=== PATIENT | male | born 1975 | race Caucasian/White ===

== ENCOUNTER 2016-04-10 15:23 | Emergency (ER) | payer OTHER ==
--- NOTE | 2016-04-10 15:33 | UCPHY ---
H & P Patient Type: Established HPI/ROS: HPI CHIEF COMPLAINT: Abdominal pain, nausea. HISTORY OF PRESENT ILLNESS: This patient very pleasant 40-year-old male, presents to the urgent care with left-sided abdominal pain times 3 days. Patient tells me it is a dull ache 8/10 left upper and left lower abdomen. He denies having diarrhea denies having bloody stools denies vomiting. Denies fever. Denies chest pain or shortness of breath. Describes the pain is dull achy 8 in 10 constant left side of his abdomen. Past Medical History: IgG 4 Past Surgical History: Denies any surgical history Social History: Denies use of drugs alcohol tobacco Family History: Noncontributory ROS REVIEW OF SYSTEMS: A comprehensive 10 point review of systems is otherwise negative aside from elements mentioned in the history of present illness. Exam Constitutional triage nursing summary reviewed, vital signs reviewed, awake/ alert. Eyes normal conjunctivae and sclera, EOMI, PERRLA. HENT normal inspection, atraumatic, moist mucus membranes, no epistaxis, neck supple/ no meningismus, no raccoon eyes. Respiratory clear to auscultation bilaterally, normal breath sounds, no respiratory distress, no wheezing. Cardiovascular rate normal, regular rhythm, no murmur, no edema, distal pulses normal. Gastrointestinal soft, mild tenderness palpation left upper quadrant, left lower quadrant , no rebound, no guarding, normal bowel sounds, no distension, no pulsatile mass. Genitourinary no CVA tenderness. Musculoskeletal no midline vertebral tenderness, full range of motion, no calf swelling, no tenderness of extremities, no meningismus, good pulses, neurovascularly intact. Skin pink, warm, & dry, no rash, skin atraumatic. Neurologic awake, alert and oriented x 3, AAOx3, moves all 4 extremities equally, motor intact, sensory intact, CN II-XII intact, normal cerebellar, normal vision, normal speech. Psychiatric normal mood/affect. Heme/Lymph/Immune no lymphadenopathy. Differential diagnosis includes but is not limited to and in no particular order : Bowel obstruction, appendicitis, gallbladder disease, diverticulitis, colitis , enteritis, perforated viscus, gastritis, GERD, esophagitis, urinary tract infection, pyelonephritis, kidney stones Medical Decision Making: This patient had an IV established will obtain blood work, patient had a CT scan abdomen pelvis with IV contrast to help delineate acute left-sided abdominal pain. It is possible this is colitis/diverticulitis. He will be gently hydrated with IV fluids normal saline, IV 0.5 mg Dilaudid, and IV Zofran 4 mg for nausea. Re-evaluation: CT scan of the abdomen pelvis without IV contrast The results of the study are pancreas appears slightly full, otherwise no evidence of acute colitis, diverticulitis. The study was read by Dr. Jackson. I viewed the images myself on the PACS system. 1719: re-evaluation this time this patient is resting comfortably. Still some mild tenderness palpation epigastric and left upper quadrant. CT scan shows fullness of the pancreas however lipase normal. 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 He is feeling much better does tell me that he still has mild pain would like more pain medicine. 1800: Re-examination at this time this patient is feeling much better his abdomen remained soft nontender he p.o. challenge well and vomiting. Does understand to follow up with his primary care doctor about his elevated blood sugar when I asked him if he had diabetes says 5 years ago however has not had to take diabetic medication was noted his blood sugar was elevated. He understands he needs to follow up with his primary care doctor about his elevated blood sugar. He also understands to return to the emergency room if develops any worsening abdominal pain fever vomiting. I will prescribe drive him a very low dose of Ararat. On CT scan his pancreas looked slightly large, this may be due to autoimmune pancreatitis. His lipase was noted to be normal but he is having pain there. He understands to eat no fatty greasy foods. Clear liquid diet over the next 12 hours Ararat for pain return if any worsening symptoms Source: Patient - Personal History Tetanus Vaccine Date: >10yrs - Medical/Surgical History Hx Asthma: No Hx Chronic Respiratory Disease: No Hx Diabetes: No Hx Cardiac Disease: No Hx Renal Disease: No Hx Cirrhosis: No Hx Alcoholism: No Hx HIV/AIDS: No Hx Splenectomy or Spleen Trauma: No Other PMH: R arm lymph node biopsy 09/2013 neg - Family History Significant Family History: No pertinent family hx - Social History Smoking Status: Never smoked Constitutional: Initial Vital Signs Temperature (C) 36.6 C 04/10/16 15:32 Heart Rate 72 04/10/16 15:32 Respiratory Rate 18 04/10/16 15:32 Blood Pressure 128/78 H 04/10/16 15:32 O2 Sat (%) 96 04/10/16 15:32 O2 Delivery Mode Room Air Allergies/Adverse Reactions: iv contrast Allergy (Uncoded 07/05/14 23:43) Home Medications: Medication Instructions Recorded Hydrocodone/APAP 325 [Ararat 1 - 2 tab PO Q4H PRN #10 tab 04/10/16 5/325] Imuran 50 mg (*) 04/10/16 Medical Decision Making - Data Points Laboratory Results: Laboratory Results 04/10/16 16:15 04/10/16 16:15 04/10/16 16:15 WBC 5.22 10^3/uL (3.80-9.50) RBC 5.01 10^6/uL (4.40-6.38) Hgb 15.2 g/dL (13.7-17.5) Hct 43.0 % (40.0-51.0) MCV 85.8 fL (81.5-99.8) MCH 30.3 pg (27.9-34.1) MCHC 35.3 g/dL (32.4-36.7) RDW 12.1 % (11.5-15.2) Plt Count 220 10^3/uL (150-400) MPV 10.9 fL (8.7-11.7) Neut % (Auto) 57.1 % (39.3-74.2) Lymph % (Auto) 28.5 % (15.0-45.0) [place] % (Auto) 11.5 % (4.5-13.0) Eos % (Auto) 1.9 % (0.6-7.6) Baso % (Auto) 0.4 % (0.3-1.7) Nucleat RBC Rel Count 0.0 % (0.0-0.2) Absolute Neuts (auto) 2.98 10^3/uL (1.70-6.50) Absolute Lymphs (auto) 1.49 10^3/uL (1.00-3.00) Absolute Monos (auto) 0.60 10^3/uL (0.30-0.80) Absolute Eos (auto) 0.10 10^3/uL (0.03-0.40) Absolute Basos (auto) 0.02 10^3/uL (0.02-0.10) Absolute Nucleated RBC 0.00 10^3/uL (0-0.01) Immature Gran % 0.6 % (0.0-1.1) Immature Gran # 0.03 10^3/uL (0.00-0.10) PT 12.3 SEC (12.0-15.0) INR 0.93 (0.83-1.16) APTT 22.4 L SEC (23.0-38.0) VBG Lactic Acid 1.0 mmol/L (0.7-2.1) Sodium 140 mEq/L (134-144) Potassium 3.8 mEq/L (3.5-5.2) Chloride 105 mEq/L (97-110) Carbon Dioxide 25 mEq/l (22-31) Anion Gap 10 mEq/L (8-16) BUN 13 mg/dL (7-23) Creatinine 0.9 mg/dL (0.7-1.3) Estimated GFR > 60 Glucose 280 H mg/dL (70-100) Calcium 8.8 mg/dL (8.5-10.4) Total Bilirubin 0.7 mg/dL (0.1-1.4) Conjugated Bilirubin 0.3 mg/dL (0.0-0.5) Unconjugated Bilirubin 0.4 mg/dL (0.0-1.1) AST 28 IU/L (17-59) ALT 45 IU/L (21-72) Alkaline Phosphatase 135 H IU/L (38-126) Total Protein 6.6 g/dL (6.3-8.2) Albumin 3.5 g/dL (3.5-5.0) Lipase 271.0 IU/L (23-300) Medications Given: Discontinued Medications Hydromorphone HCl (Dilaudid) 0.5 mg IVP EDNOW ONE Stop: 04/10/16 15:38 Last Admin: 04/10/16 16:20 Dose: 0.5 mg Hydromorphone HCl (Dilaudid) 1 mg IVP EDNOW ONE Stop: 04/10/16 17:20 Last Admin: 04/10/16 17:37 Dose: 1 mg Sodium Chloride (Ns) 1,000 mls @ 0 mls/hr IV ONCE ONE PRN Reason: Wide Open Stop: 04/10/16 15:38 Last Admin: 04/10/16 16:21 Dose: 1,000 mls Sodium Chloride (Ns) 1,000 mls @ 0 mls/hr IV ONCE ONE PRN Reason: Wide Open Stop: 04/10/16 17:20 Last Admin: 04/10/16 17:37 Dose: 1,000 mls Ondansetron HCl (Zofran) 4 mg IVP EDNOW ONE Stop: 04/10/16 15:38 Last Admin: 04/10/16 16:21 Dose: 4 mg Departure - Departure Disposition: Home, Routine, Self-Care Clinical Impression: Hyperglycemia Abdominal pain Qualifiers: Qualifier Code: (R10.84) Generalized abdominal pain Condition: Good Instructions: Diabetic Hyperglycemia (ED), Acute Abdominal Pain (ED) Additional Instructions: 1. Please return to the emergency room if he develops any worsening symptoms questions or concerns. 2. your blood sugar was noted to be somewhat high here in the Urgent Care please follow up with her primary care doctor about this. Please call their for an appointment this week. Referrals: AMANDA THURSTON,Donald [Primary Care Provider] - As per Instructions Prescriptions: Hydrocodone/APAP 5/325 [Ararat 5/325] 1 - 2 tab PO Q4H PRN #10 tab PRN Reason: Pain, Moderate Print Language: Liberian - PQRS PQRS Measurement: n/a
[2016-04-10] MEDS ORDERED: HYDROmorphONE/DILAUDID 1 MG/ML SYR IVP ONE ×2 (15:37→17:19)
[2016-04-10] MEDS ORDERED: ONDANSETRON 4 MG/2 ML VIAL IVP ONE (15:37)
[2016-04-10] MEDS ORDERED: NS 1,000 ML IV ONE ×2 (15:37→17:19)
[2016-04-10] MEDS ORDERED: IOPAMIDOL (ISOVUE-300) 100 ML BTL IV ONE (15:42)
[2016-04-10 16:23] LABS: % IMMATURE GRANULYOCYTES 0.6 % (0.0-1.1); ABSOLUTE IMMATURE GRANULOCYTES 0.03 10^3/uL (0.00-0.10); ADD DIFF? NO; ADD MORPH? NO; ADD SCAN? NO; ATYPICAL LYMPHOCYTE FLAG 10 (0-99); FRAGMENT RBC FLAG 0 (0-99); HEMOGLOBIN 15.2 g/dL (13.7-17.5); LEFT SHIFT FLG 0 (0-99); LIPEMIA HEMOLYSIS FLAG 90 (0-99); MEAN CELL HEMOGLOBIN 30.3 pg (27.9-34.1); MEAN CELL HEMOGLOBIN CONCENTR. 35.3 g/dL (32.4-36.7); MEAN CELL VOLUME 85.8 fL (81.5-99.8); MEAN PLATELET VOLUME 10.9 fL (8.7-11.7); PLATELET CLUMPS FLAG 0 (0-99); PLATELET COUNT 220 10^3/uL (150-400); RED BLOOD CELL COUNT 5.01 10^6/uL (4.40-6.38); RED CELL DISTRIBUTION WIDTH 12.1 % (11.5-15.2)
[2016-04-10 16:27] VITALS: RESP 16
[2016-04-10 16:32] LABS: INR 0.93 (0.83-1.16); PROTIME(PATIENT) 12.3 SEC (12.0-15.0)
[2016-04-10 16:33] LABS: APTT 22.4 SEC (23.0-38.0)
[2016-04-10 16:36] LABS: ALANINE AMINOTRANSFERASE 45 IU/L (21-72); ALBUMIN 3.5 g/dL (3.5-5.0); ALKALINE PHOSPHATASE 135 IU/L (38-126); ANION GAP 10 mEq/L (8-16); ASPARTATE AMINOTRANSFERASE 28 IU/L (17-59); BILIRUBIN,TOTAL 0.7 mg/dL (0.1-1.4); BILIRUBIN-CONJUGATED 0.3 mg/dL (0.0-0.5); BILIRUBIN-UNCONJUGATED 0.4 mg/dL (0.0-1.1); CALCIUM 8.8 mg/dL (8.5-10.4); CARBON DIOXIDE 25 mEq/l (22-31); CHLORIDE 105 mEq/L (97-110); CREATININE 0.9 mg/dL (0.7-1.3); GLOMERULAR FILTRATION RATE > 60; GLUCOSE 280 mg/dL (70-100); POTASSIUM 3.8 mEq/L (3.5-5.2); SODIUM 140 mEq/L (134-144); TOTAL PROTEIN 6.6 g/dL (6.3-8.2)
--- NOTE | 2016-04-10 16:40 | CT ---
CT Scan of the Urinary Tract (Abdomen and Pelvis Without Contrast) Indication: Left flank pain. History of lymphadenopathy in the chest. Technique: Multidetector helical CT imaging was performed from the kidneys to the urinary bladder wi thout contrast. Dose reduction techniques were utilized. Comparison: CT abdomen and pelvis dated October 14, 2013. Findings: The pancreas is diffusely mildly enlarged, with a sausage-like appearance, suggestive of a utoimmune pancreatitis. No peripancreatic fluid or stranding. No pancreatic duct dilatation or calc ifications. The bowel pattern is normal. No diverticulosis. The kidneys are normal. No hydronephrosis, nephrol ithiasis, or ureteral calculi. The urinary bladder is normal. An enlarged right external iliac node, measuring 2.3 x 1.2 cm, on image #255 of series #3, has increa sed in size since 2013 (previously measured 2.0 x 0.9 cm). A second borderline enlarged lymph node s lightly more superior posterior to the right external iliac vein is present on image #242. No bulky lymphadenopathy throughout the mesentery or retroperitoneum. The normal size liver, spleen, and adrenal glands are normal. The gallbladder is not visible. The lung bases are clear. The heart size is normal. The abdominal aorta is normal caliber. No athe ford. No bone lesions. Impression: 1. Query autoimmune pancreatitis/IgG related disease. 2. Normal bowel. No acute diverticulitis or appendicitis. 3. Minimal right pelvic lymphadenopathy has increased since 2013. Findings discussed with Emergency Department physician, Beto Cohen M.D., at April 10, 2016 at 1623 hours. Attention: This CT examination is specifically designed to evaluate patients who are clinically susp ected of having acute obstructive uropathy. This examination does not use radiographic contrast, and as such, provides only a limited evaluation of the abdomen, pelvis, and retroperitoneum. If there is further clinical suspicion for pathological conditions other than obstructive uropathy, a complete CT evaluation of the abdomen and pelvis utilizing intravenous, oral, and rectal contrast should be c onsidered.
[2016-04-10 18:26] VITALS: BP 105/61; PULSE 59; TEMP 98.2; O2SAT 92
== END 2016-04-10 18:26 | disposition home or self-care (01) ==
LOC: CED 15:23
DX: R10.84 Generalized abdominal pain (principal); R73.9 Hyperglycemia, unspecified
CPT/HCPCS: 74176-PO; 80048-PO; 80076-PO; 83605-PO; 83690-PO; 85025-PO; 85610-PO; 85730-PO; 96361-PO; 96374-PO; 96375-PO; 96376-PO; G0463-PO; J1170; J2405; Q9967

== ENCOUNTER 2016-07-01 19:14 | Emergency (ER) | payer OTHER ==
[2016-07-01 19:22] VITALS: BP 119/78; PULSE 86; RESP 16; TEMP 98.2; O2SAT 94
[2016-07-01] MEDS ORDERED: NS 1,000 ML IV ONE (19:33)
[2016-07-01] MEDS ORDERED: HYOSCYAMINE SULFATE 0.125 MG TAB PO ONE (19:51)
[2016-07-01 19:57] LABS: % IMMATURE GRANULYOCYTES 0.3 % (0.0-1.1); ABSOLUTE IMMATURE GRANULOCYTES 0.02 10^3/uL (0.00-0.10); ADD DIFF? NO; ADD MORPH? NO; ADD SCAN? NO; ATYPICAL LYMPHOCYTE FLAG 10 (0-99); FRAGMENT RBC FLAG 0 (0-99); HEMOGLOBIN 15.1 g/dL (13.7-17.5); LEFT SHIFT FLG 0 (0-99); LIPEMIA HEMOLYSIS FLAG 90 (0-99); MEAN CELL HEMOGLOBIN 30.6 pg (27.9-34.1); MEAN CELL HEMOGLOBIN CONCENTR. 35.1 g/dL (32.4-36.7); MEAN CELL VOLUME 87.2 fL (81.5-99.8); MEAN PLATELET VOLUME 9.9 fL (8.7-11.7); PLATELET CLUMPS FLAG 0 (0-99); PLATELET COUNT 287 10^3/uL (150-400); RED BLOOD CELL COUNT 4.93 10^6/uL (4.40-6.38); RED CELL DISTRIBUTION WIDTH 12.2 % (11.5-15.2)
[2016-07-01 19:58] LABS: COLOR YELLOW; LEUKOCYTE ESTERASE,URINE NEGATIVE (NEGATIVE); NITRITE,URINE NEGATIVE (NEGATIVE)
[2016-07-01 20:12] LABS: ALANINE AMINOTRANSFERASE 31 IU/L (21-72); ALBUMIN 3.8 g/dL (3.5-5.0); ALKALINE PHOSPHATASE 114 IU/L (38-126); ANION GAP 17 mEq/L (8-16); ASPARTATE AMINOTRANSFERASE 18 IU/L (17-59); BILIRUBIN,TOTAL 0.7 mg/dL (0.1-1.4); CALCIUM 9.2 mg/dL (8.5-10.4); CARBON DIOXIDE 22 mEq/l (22-31); CHLORIDE 103 mEq/L (97-110); CREATININE 0.6 mg/dL (0.7-1.3); GLOMERULAR FILTRATION RATE > 60; GLUCOSE 110 mg/dL (70-100); POTASSIUM 3.7 mEq/L (3.5-5.2); SODIUM 142 mEq/L (134-144)
[2016-07-01] MEDS ORDERED: KETOROLAC 30 MG/1 ML SDV IVP ONE (20:22)
--- NOTE | 2016-07-01 20:39 | EDPHY ---
H & P Stated Complaint: LUQ abdo pain for 2 days-at Clinic today. Source: Patient Exam Limitations: No limitations - Personal History Current Tetanus/Diphtheria Vaccine: Unsure Current Tetanus Diphtheria and Acellular Pertussis (TDAP): Unsure Tetanus Vaccine Date: >10yrs - Medical/Surgical History Hx Asthma: No Hx Chronic Respiratory Disease: No Hx Diabetes: No Hx Cardiac Disease: No Hx Renal Disease: No Hx Cirrhosis: No Hx Alcoholism: No Hx HIV/AIDS: No Hx Splenectomy or Spleen Trauma: No Other PMH: R arm lymph node biopsy 09/2013 neg, NIDDM, IGg4 disease, ? autoimmune pancreatitis. - Family History Significant Family History: No pertinent family hx - Social History Smoking Status: Never smoked Alcohol Use: Occasionally Drug Use: None Time Seen by Provider: 07/01/16 19:31 HPI/ROS: This patient reports a 2 day history of abdominal pain that started in the morning 2 days prior to arrival. He describes the pain as burning and sharp in nature left upper quadrant occasionally radiating to his back peak intensity 8/ 10. At other times she reports the pain is mild to moderate. He notes no clear exacerbating or alleviating factors. He has been eating pineapple since having a light diet any notes no change in the pain when he eats food. He had a similar episode of pain in April the right side with an unrevealing workup except for slight enlargement of his pancreas at that time. His history is notable for IgG 4 disease on Imuran. ROS: No fevers or chills. No other constitutional symptoms HEENT: No recent URI symptoms or other complaints. Pulmonary: No cough GI: He reports normal bowel movements. No nausea or vomiting. : No urinary symptoms no hematuria no flank pain. Integumentary: No skin rash. Endocrine: No overt polyuria polydipsia or other symptoms. Complete ROS is otherwise negative (Jose Anders) - Social History Additional Social History: He is accompanied by his daughter who also helps translate Welsh and his patient does speak some Bahraini. (Jose Anders) - Physical Exam Exam: General Appearance: Alert, no distress. Eyes: Pupils equal and round no pallor or injection. ENT, Mouth: Mucous membranes moist. Respiratory: There are no retractions, lungs are clear to auscultation. Cardiovascular: Regular rate and rhythm. Gastrointestinal: Hyperactive bowel sounds., soft, mild left upper quadrant tenderness with no guarding or rebound. Back: No CVA tenderness : No testicular tenderness Neurological: GCS 15 with no focal deficits. Skin: Warm and dry, no rashes. Musculoskeletal: Neck is supple nontender. Extremities are symmetrical, full range of motion. Psychiatric: Mood and affect are normal DIFFERENTIAL DIAGNOSIS: After history and physical exam differential diagnosis was considered for splinting pain related to his IgG 4, viral illness with crampy abdominal pain, doubt diverticulitis given the location, pancreatitis ( Jose Anders) Constitutional: Initial Vital Signs Temperature (C) 36.8 C 07/01/16 19:17 Heart Rate 86 07/01/16 19:17 Respiratory Rate 16 07/01/16 19:17 Blood Pressure 119/78 07/01/16 19:17 O2 Sat (%) 94 07/01/16 19:17 O2 Delivery Mode Room Air Allergies/Adverse Reactions: iv contrast Allergy (Uncoded 07/05/14 23:43) Home Medications: Medication Instructions Recorded Acetaminophen [Tylenol ES 500 mg 1,000 mg PO BID PRN 07/03/16 (*)] Cyanocobalamin [Vitamin B12 (*)] 1,000 mcg PO DAILY 07/03/16 Ranitidine HCl 150 mg PO DAILY 07/03/16 azaTHIOprine [Imuran 50 mg (*)] 50 mg PO DAILY 07/03/16 diphenhydrAMINE [Benadryl 25 MG 25 mg PO Q4 PRN 07/03/16 (*)] metFORMIN HCL [Glucophage 500 mg 1,000 mg PO DAILY 07/03/16 (*)] Medical Decision Making ED Course/Re-evaluation: Studies revealed normal CBC, comp metabolic panel and urinalysis. Patient has a normal lipase as well. Clinically has hyperactive bowel sounds with only minimal tenderness. Viral gastroenteritis and other viral GI illnesses are preliminary community at this time think it is likely this patient has such an illness or food intolerance causing his discomfort. He is treated with Levsin and Toradol with partial improvement. I do not find evidence to suggest significant inflammatory complications of his IgG 4 currently. No clinical evidence to suggest bowel obstruction, renal failure or other concerns. (Jose Anders) - Data Points Laboratory Results: Laboratory Results 07/01/16 19:50 07/01/16 19:50 Medications Given: Discontinued Medications Al Hydroxide/Mg Hydroxide (Maalox Susp) 30 ml PO EDNOW ONE Stop: 07/01/16 21:05 Last Admin: 07/01/16 21:07 Dose: 30 ml Hyoscyamine Sulfate (Levsin, Hyomax-Sl) 0.25 mg PO EDNOW ONE Stop: 07/01/16 19:52 Last Admin: 07/01/16 19:55 Dose: 0.25 mg Sodium Chloride (Ns) 1,000 mls @ 0 mls/hr IV ONCE ONE PRN Reason: Wide Open Stop: 07/01/16 19:34 Last Admin: 07/01/16 19:36 Dose: 300 mls Ketorolac Tromethamine (Toradol) 30 mg IVP EDNOW ONE Stop: 07/01/16 20:23 Last Admin: 07/01/16 20:22 Dose: 30 mg Departure - Departure Disposition: Home, Routine, Self-Care Clinical Impression: LUQ abdominal pain Condition: Good Instructions: Acute Abdominal Pain (ED) Additional Instructions: Diagnosis: Left upper quadrant abdominal pain 2. Mild Hypokalemia Plan: Light diet Drink plenty fluids Levsin if needed for cramping pain Tylenol or ibuprofen in addition if needed for discomfort Supplemental potassium for the next 5 days. Good Follow up with primary care physician in 3-5 days for recheck. Return for any significant worsening despite the treatment plan. Referrals: AMANDA THURSTON,. [Primary Care Provider] - As per Instructions
[2016-07-01] MEDS ORDERED: MAG HYDROX/AL HYDROX/SIMETH 30 ML UDCUP PO ONE (21:04)
== END 2016-07-01 21:23 | disposition home or self-care (01) ==
LOC: CED 19:14
DX: R10.12 Left upper quadrant pain (principal); E11.9 Type 2 diabetes mellitus without complications; E87.6 Hypokalemia
CPT/HCPCS: 80053-PO; 81003-PO; 83690-PO; 85025-PO; 96374; J1885

== ENCOUNTER 2016-07-02 23:12 | Inpatient (IN) | payer OTHER ==
[2016-07-03] MEDS ORDERED: FAMOTIDINE 20 MG TAB PO ONE (00:05)
[2016-07-03] MEDS ORDERED: NS 1,000 ML IV ONE ×2 (00:05)
[2016-07-03] MEDS ORDERED: ONDANSETRON 4 MG/2 ML VIAL IVP ONE (00:05)
[2016-07-03 00:06] LABS: % IMMATURE GRANULYOCYTES 0.3 % (0.0-1.1); ABSOLUTE IMMATURE GRANULOCYTES 0.02 10^3/uL (0.00-0.10); ADD DIFF? NO; ADD MORPH? NO; ADD SCAN? NO; ATYPICAL LYMPHOCYTE FLAG 10 (0-99); FRAGMENT RBC FLAG 0 (0-99); HEMOGLOBIN 15.2 g/dL (13.7-17.5); LEFT SHIFT FLG 0 (0-99); LIPEMIA HEMOLYSIS FLAG 90 (0-99); MEAN CELL HEMOGLOBIN 30.5 pg (27.9-34.1); MEAN CELL HEMOGLOBIN CONCENTR. 34.5 g/dL (32.4-36.7); MEAN CELL VOLUME 88.4 fL (81.5-99.8); MEAN PLATELET VOLUME 9.9 fL (8.7-11.7); PLATELET CLUMPS FLAG 0 (0-99); PLATELET COUNT 269 10^3/uL (150-400); RED BLOOD CELL COUNT 4.98 10^6/uL (4.40-6.38); RED CELL DISTRIBUTION WIDTH 12.4 % (11.5-15.2)
[2016-07-03] MEDS ORDERED: KETOROLAC 15 MG/1 ML SDV IVP ONE (00:07)
[2016-07-03 00:11] LABS: ALANINE AMINOTRANSFERASE 35 IU/L (21-72); ALBUMIN 4.1 g/dL (3.5-5.0); ALKALINE PHOSPHATASE 112 IU/L (38-126); ANION GAP 10 mEq/L (8-16); ASPARTATE AMINOTRANSFERASE 18 IU/L (17-59); BILIRUBIN,TOTAL 0.5 mg/dL (0.1-1.4); BILIRUBIN-CONJUGATED 0.4 mg/dL (0.0-0.5); BILIRUBIN-UNCONJUGATED 0.1 mg/dL (0.0-1.1); CALCIUM 9.5 mg/dL (8.5-10.4); CARBON DIOXIDE 25 mEq/l (22-31); CHLORIDE 107 mEq/L (97-110); CREATININE 0.7 mg/dL (0.7-1.3); GLOMERULAR FILTRATION RATE > 60; GLUCOSE 178 mg/dL (70-100); POTASSIUM 4.2 mEq/L (3.5-5.2); SODIUM 142 mEq/L (134-144); TOTAL PROTEIN 7.3 g/dL (6.3-8.2)
[2016-07-03] MEDS ORDERED: FAMOTIDINE 20 MG/NACL/50 ML BAG IV ONE (00:25)
[2016-07-03] MEDS ORDERED: FAMOTIDINE 20 MG/NACL 50 ML IV ONE (00:28)
--- NOTE | 2016-07-03 00:30 | EDPHY ---
H & P Stated Complaint: LUQ pain Time Seen by Provider: 07/02/16 23:44 HPI/ROS: History is obtained from interpreter. HPI The patient presents with several days of left upper quadrant abdominal pain he had pain that started suddenly 4 days ago and is achy in nature, moderate in severity. It does not radiate. It is associated with nausea and decreased appetite. Last night he was not able to sleep because the pain was severe. He was seen at [facility] yesterday and had labs checked that were unremarkable, he was discharged with some medications which he is taking, however these have not helped with the pain. He did drink about 4 beers 5 days ago. In April he had a similar episode and was seen in our emergency department. CT scan was performed which revealed signs of pancreatitis. Given his history of IgG 4 related disease he was thought to have autoimmune pancreatitis. He says at this time he is symptoms improved after a few days. REVIEW OF SYSTEMS Constitutional: No fever, no chills. Eyes: No discharge. ENT: No sore throat. Cardiovascular: No chest pain, no palpitations. Respiratory: No cough, no shortness of breath. Gastrointestinal: No abdominal pain, no vomiting. Genitourinary: No hematuria. Musculoskeletal: No back pain. Skin: No rashes. Neurological: No headache. PMHx: IgG 4 related disease, on Imuran, followed by Dr. Bang Soc Hx: Occasionally drinks alcohol PHYSICAL General Appearance: Alert, no distress Eyes: Pupils equal and round no pallor or injection ENT, Mouth: Mucous membranes moist Respiratory: There are no retractions, lungs are clear to auscultation Cardiovascular: Regular rate and rhythm Gastrointestinal: Abdomen is soft with tenderness in the left upper quadrant without any rebound or guarding Neurological: A&O, moves all extremities Skin: Warm and dry, no rashes Musculoskeletal: Neck is supple non tender Extremities: symmetrical, full range of motion Psychiatric: Patient is oriented X 3, there is no agitation Source: Patient Exam Limitations: No limitations - Personal History Current Tetanus/Diphtheria Vaccine: No Current Tetanus Diphtheria and Acellular Pertussis (TDAP): No Tetanus Vaccine Date: >10yrs - Medical/Surgical History Hx Asthma: No Hx Chronic Respiratory Disease: No Hx Diabetes: Yes Hx Cardiac Disease: No Hx Renal Disease: No Hx Cirrhosis: No Hx Alcoholism: No Hx HIV/AIDS: No Hx Splenectomy or Spleen Trauma: No Other PMH: R arm lymph node biopsy 09/2013 neg, NIDDM, IGg4 disease, ? autoimmune pancreatitis. - Social History Smoking Status: Never smoked Constitutional: Initial Vital Signs Temperature (C) 36.5 C 07/02/16 23:18 Heart Rate 67 07/02/16 23:18 Respiratory Rate 16 07/02/16 23:18 Blood Pressure 127/82 H 07/02/16 23:18 O2 Sat (%) 96 07/02/16 23:18 O2 Delivery Mode Room Air Allergies/Adverse Reactions: iv contrast Allergy (Uncoded 07/05/14 23:43) Home Medications: Medication Instructions Recorded Imuran 50 mg (*) 04/10/16 Diabetic Tablet 07/01/16 HYOSCYAMINE SULFATE [Levsin-Sl] 0.125 - 0.25 mg SL Q6 PRN #20 07/01/16 tab.subl Ranitidine HCl 07/01/16 Medical Decision Making ED Course/Re-evaluation: 3:00 a.m.- The patient was monitored in the emergency room for several hours. He was given a 2 L fluid bolus. He was initially given famotidine and Toradol with minimal improvement in his symptoms. He then received a dose of Dilaudid and felt better. Repeat abdominal exam was improved. Then the pain returned and he did not feel well enough to go home. I feel he likely does have autoimmune pancreatitis as the cause of his symptoms. I would like to avoid a CT scan given his young age and given that this pain is consistent with his prior episode of pancreatitis I feel this is reasonable for now. I have discussed the case with the hospitalist Dr. Vail. We plan to admit the patient to the hospital. Differential Diagnosis: This is a 40-year-old man with known IgG 4 related disease, history of prior episode of what was thought to be autoimmune pancreatitis who presents with left upper quadrant pain for the last 4 days, now associated with anorexia and nausea. On exam, he is well-appearing, he has tenderness left upper quadrant without rebound or guarding. Differential diagnosis includes autoimmune pancreatitis, alcohol induced pancreatitis, nephrolithiasis, less likely colitis. - Data Points Laboratory Results: Laboratory Results 07/02/16 23:50 07/02/16 23:50 05/03/17 05/03/17 05/03/17 23:50 23:50 23:43 WBC 6.37 10^3/uL 10^3/uL (3.80-9.50) RBC 4.98 10^6/uL 10^6/uL (4.40-6.38) Hgb 15.2 g/dL g/dL (13.7-17.5) Hct 44.0 % % (40.0-51.0) MCV 88.4 fL fL (81.5-99.8) MCH 30.5 pg pg (27.9-34.1) MCHC 34.5 g/dL g/dL (32.4-36.7) RDW 12.4 % % (11.5-15.2) Plt Count 269 10^3/uL 10^3/uL (150-400) MPV 9.9 fL fL (8.7-11.7) Neut % (Auto) 60.0 % % (39.3-74.2) Lymph % (Auto) 26.1 % % (15.0-45.0) [place] % (Auto) 9.7 % % (4.5-13.0) Eos % (Auto) 3.3 % % (0.6-7.6) Baso % (Auto) 0.6 % % (0.3-1.7) Nucleat RBC Rel Count 0.0 % % (0.0-0.2) Absolute Neuts (auto) 3.82 10^3/uL 10^3/uL (1.70-6.50) Absolute Lymphs (auto) 1.66 10^3/uL 10^3/uL (1.00-3.00) Absolute Monos (auto) 0.62 10^3/uL 10^3/uL (0.30-0.80) Absolute Eos (auto) 0.21 10^3/uL 10^3/uL (0.03-0.40) Absolute Basos (auto) 0.04 10^3/uL 10^3/uL (0.02-0.10) Absolute Nucleated RBC 0.00 10^3/uL 10^3/uL (0-0.01) Immature Gran % 0.3 % % (0.0-1.1) Immature Gran # 0.02 10^3/uL 10^3/uL (0.00-0.10) Sodium 142 mEq/L mEq/L (134-144) Potassium 4.2 mEq/L mEq/L (3.5-5.2) Chloride 107 mEq/L mEq/L (97-110) Carbon Dioxide 25 mEq/l mEq/l (22-31) Anion Gap 10 mEq/L mEq/L (8-16) BUN 11 mg/dL mg/dL (7-23) Creatinine 0.7 mg/dL mg/dL (0.7-1.3) Estimated GFR > 60 Glucose 178 mg/dL H mg/dL (70-100) Calcium 9.5 mg/dL mg/dL (8.5-10.4) Total Bilirubin 0.5 mg/dL mg/dL (0.1-1.4) Conjugated Bilirubin 0.4 mg/dL mg/dL (0.0-0.5) Unconjugated Bilirubin 0.1 mg/dL mg/dL (0.0-1.1) AST 18 IU/L IU/L (17-59) ALT 35 IU/L IU/L (21-72) Alkaline Phosphatase 112 IU/L IU/L (38-126) Total Protein 7.3 g/dL g/dL (6.3-8.2) Albumin 4.1 g/dL g/dL (3.5-5.0) Lipase 129.0 IU/L IU/L (23-300) Urine Color PALE YELLOW Urine Appearance CLEAR Urine pH 7.0 (5.0-7.5) Ur Specific [place] 1.008 (1.002-1.030) Urine Protein NEGATIVE (NEGATIVE) Urine Ketones NEGATIVE (NEGATIVE) Urine Blood NEGATIVE (NEGATIVE) Urine Nitrate NEGATIVE (NEGATIVE) Urine Bilirubin NEGATIVE (NEGATIVE) Urine Urobilinogen NEGATIVE EU EU (0.2-1.0) Ur Leukocyte Esterase NEGATIVE (NEGATIVE) Urine RBC 1-3 /hpf /hpf (0-3) Urine WBC 1-3 /hpf /hpf (0-3) Ur Epithelial Cells Not Reported Urine Mucus TRACE /lpf /lpf (NONE-1+) Urine Glucose 1+ H (NEGATIVE) Medications Given: Discontinued Medications Famotidine (Pepcid) 20 mg PO EDNOW ONE Stop: 07/03/16 00:06 Last Admin: 07/03/16 02:05 Dose: Not Given Hydromorphone HCl (Dilaudid) 1 mg IVP EDNOW ONE Stop: 07/03/16 01:04 Last Admin: 07/03/16 01:09 Dose: 1 mg Sodium Chloride (Ns) 1,000 mls @ 0 mls/hr IV ONCE ONE PRN Reason: Wide Open Stop: 07/03/16 00:06 Last Admin: 07/03/16 00:20 Dose: 1,000 mls Sodium Chloride (Ns) 1,000 mls @ 0 mls/hr IV ONCE ONE PRN Reason: Wide Open Stop: 07/03/16 00:06 Last Admin: 07/03/16 01:12 Dose: 1,000 mls Famotidine/Sodium Chloride (Pepcid 20 Mg (Premix)) 50 mls @ 200 mls/hr IV EDNOW ONE Stop: 07/03/16 00:42 Last Admin: 07/03/16 00:30 Dose: 50 mls Ketorolac Tromethamine (Toradol) 15 mg IVP EDNOW ONE Stop: 07/03/16 00:08 Last Admin: 07/03/16 00:22 Dose: 15 mg Ondansetron HCl (Zofran) 4 mg IVP EDNOW ONE Stop: 07/03/16 00:06 Last Admin: 07/03/16 00:24 Dose: 4 mg Departure - Departure Disposition: [facility] Inpatient Acute Clinical Impression: Abdominal pain Qualifiers: Abdominal location: left upper quadrant Qualified Code(s): R10.12 - Left upper quadrant pain Pancreatitis Qualifiers: Chronicity: acute Pancreatitis type: other Acute pancreatitis complication: unspecified Qualified Code(s): K85.80 - Other acute pancreatitis without necrosis or infection Condition: Fair Referrals: [employer] [Other] - As per Instructions
[2016-07-03 01:01] LABS: COLOR PALE YELLOW; LEUKOCYTE ESTERASE,URINE NEGATIVE (NEGATIVE); NITRITE,URINE NEGATIVE (NEGATIVE)
[2016-07-03 01:02] LABS: MUCUS TRACE /lpf (NONE-1+)
[2016-07-03] MEDS ORDERED: HYDROmorphONE/DILAUDID 1 MG/ML SYR IVP ONE ×2 (01:03→02:55)
[2016-07-03] MEDS ORDERED: ACETAMINOPHEN 325 MG TAB PO PRN (03:37)
[2016-07-03] MEDS ORDERED: ONDANSETRON 4 MG/2 ML VIAL IVP PRN (03:37)
[2016-07-03] MEDS ORDERED: ONDANSETRON DISINTEGRATING 4 MG TAB PO PRN (03:37)
[2016-07-03] MEDS ORDERED: HYDROmorphONE/DILAUDID 1 MG/ML SYR IVP PRN (03:37)
[2016-07-03] MEDS ORDERED: D50W 25 GM/50 ML SYR IVP PRN (03:39)
--- NOTE | 2016-07-03 03:55 | PDGENHP ---
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 He states his symptoms started abruptly 4 days ago with intense, dull/achy LUQ pain, not exacerbated by food or associated with nausea, vomiting or diarrhea. He describes the pain as a constant 4-5/10, occasionally intensifying to 10/10. He [place] [facility] [place], lab and urinalysis were within normal limits, so he was given symptomatic treatment and discharged home. He presents again to the ED tonight stating the pain is not improving, interfering with his ability to sleep , and he hasn't eaten anything in the past 24 hours due to pain. Of note, patient had an ED visit to [facility] in 04/2016 with the same pain quality and location. At that time, labs including LFTs and lipase were within normal limits. CT abd/pelvis revealed an edematous pancreas that appeared consistent with autoimmune pancreatitis. He was given symptom control and then discharged home. He states his pain lasted about 7-8 days during that episode. He follows at the Clinical, and also with a crab butcher Dr Melton. 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 When he arrived the ED he was afebrile and hemodynamically stable. Labs, including CBC, LFTs, lipase and UA were within normal limits. He continued to have abdominal discomfort despite significant pain medicine, so he is being admitted to the hospitalist service for further management. History Information - Allergies/Home Medication List Allergies/Adverse Reactions: iv contrast Allergy (Uncoded 07/05/14 23:43) Home Medications: Imuran 50 mg (*) 04/10/16 [Last Taken Unknown] Ranitidine HCl 07/01/16 [Last Taken Unknown] Metformin HCl 07/03/16 [Last Taken Unknown] I have personally reviewed and updated: family history, medical history, social history, surgical history - Past Medical History Additional medical history: IGG4 related sclerosing disease, autoimmune pancreatitis. DM2. Hyperlipidemia - Surgical History Additional surgical history: lymph node biopsy - Social History Smoking Status: Never smoked Alcohol Use: None Drug Use: None Additional social history: Patient lives here iwth and children. Review of Systems ROS: 10pt was reviewed & negative except for what was stated in HPI & below Physical Exam Temp Pulse Resp BP Pulse Ox 36.7 C 78 18 111/73 98 07/03/16 02:53 07/03/16 02:53 07/03/16 02:53 07/03/16 02:53 07/03/16 03:07 Constitutional: no apparent distress, appears nourished, uncomfortable Eyes: PERRL, anicteric sclera, EOMI, other (chronic R eyelid edema) Ears, Nose, Mouth, Throat: moist mucous membranes, hearing normal, ears appear normal, no oral mucosal ulcers Cardiovascular: regular rate and rhythym, no murmur, rub, or gallop, pulses symmetric bilaterally, No JVD, No edema Peripheral Pulses: 2+: dorsalis-pedis (R), dorsalis-pedis (L) Respiratory: no respiratory distress, no rales or rhonchi, clear to auscultation Gastrointestinal: normoactive bowel sounds, tenderness (tenderness localized in LUQ) Genitourinary: no bladder fullness, no bladder tenderness Skin: warm, normal color, no rashes or abrasions, no fluctuance, no induration, No mottled Musculoskeletal: full muscle strength, no muscle tenderness, normal joint ROM, no joint effusions Neurologic: AAOx3, sensation intact bilaterally, CN II-XII Intact, No weakness, No numbness, No facial droop Psychiatric: interacting appropriately, not anxious, not encephalopathic, thought process linear Lab Data & Imaging Review 07/02/16 23:50 07/02/16 23:50 WBC 6.37 10^3/uL (3.80-9.50) 07/02/16 23:50 RBC 4.98 10^6/uL (4.40-6.38) 07/02/16 23:50 Hgb 15.2 g/dL (13.7-17.5) 07/02/16 23:50 Hct 44.0 % (40.0-51.0) 07/02/16 23:50 MCV 88.4 fL (81.5-99.8) 07/02/16 23:50 MCH 30.5 pg (27.9-34.1) 07/02/16 23:50 MCHC 34.5 g/dL (32.4-36.7) 07/02/16 23:50 RDW 12.4 % (11.5-15.2) 07/02/16 23:50 Plt Count 269 10^3/uL (150-400) 07/02/16 23:50 MPV 9.9 fL (8.7-11.7) 07/02/16 23:50 Neut % (Auto) 60.0 % (39.3-74.2) 07/02/16 23:50 Lymph % (Auto) 26.1 % (15.0-45.0) 07/02/16 23:50 Bullitt % (Auto) 9.7 % (4.5-13.0) 07/02/16 23:50 Eos % (Auto) 3.3 % (0.6-7.6) 07/02/16 23:50 Baso % (Auto) 0.6 % (0.3-1.7) 07/02/16 23:50 Nucleat RBC Rel Count 0.0 % (0.0-0.2) 07/02/16 23:50 Absolute Neuts (auto) 3.82 10^3/uL (1.70-6.50) 07/02/16 23:50 Absolute Lymphs (auto) 1.66 10^3/uL (1.00-3.00) 07/02/16 23:50 Absolute Monos (auto) 0.62 10^3/uL (0.30-0.80) 07/02/16 23:50 Absolute Eos (auto) 0.21 10^3/uL (0.03-0.40) 07/02/16 23:50 Absolute Basos (auto) 0.04 10^3/uL (0.02-0.10) 07/02/16 23:50 Absolute Nucleated RBC 0.00 10^3/uL (0-0.01) 07/02/16 23:50 Immature Gran % 0.3 % (0.0-1.1) 07/02/16 23:50 Immature Gran # 0.02 10^3/uL (0.00-0.10) 07/02/16 23:50 Sodium 142 mEq/L (134-144) 07/02/16 23:50 Potassium 4.2 mEq/L (3.5-5.2) 07/02/16 23:50 Chloride 107 mEq/L (97-110) 07/02/16 23:50 Carbon Dioxide 25 mEq/l (22-31) 07/02/16 23:50 Anion Gap 10 mEq/L (8-16) 07/02/16 23:50 BUN 11 mg/dL (7-23) 07/02/16 23:50 Creatinine 0.7 mg/dL (0.7-1.3) 07/02/16 23:50 Estimated GFR > 60 07/02/16 23:50 Glucose 178 mg/dL (70-100) H 07/02/16 23:50 Calcium 9.5 mg/dL (8.5-10.4) 07/02/16 23:50 Total Bilirubin 0.5 mg/dL (0.1-1.4) 07/02/16 23:50 Conjugated Bilirubin 0.4 mg/dL (0.0-0.5) 07/02/16 23:50 Unconjugated Bilirubin 0.1 mg/dL (0.0-1.1) 07/02/16 23:50 AST 18 IU/L (17-59) 07/02/16 23:50 ALT 35 IU/L (21-72) 07/02/16 23:50 Alkaline Phosphatase 112 IU/L (38-126) 07/02/16 23:50 Total Protein 7.3 g/dL (6.3-8.2) 07/02/16 23:50 Albumin 4.1 g/dL (3.5-5.0) 07/02/16 23:50 Lipase 129.0 IU/L (23-300) 07/02/16 23:50 Urine Color PALE YELLOW 07/02/16 23:43 Urine Appearance CLEAR 07/02/16 23:43 Urine pH 7.0 (5.0-7.5) 07/02/16 23:43 Ur Specific Freedom 1.008 (1.002-1.030) 07/02/16 23:43 Urine Protein NEGATIVE (NEGATIVE) 07/02/16 23:43 Urine Ketones NEGATIVE (NEGATIVE) 07/02/16 23:43 Urine Blood NEGATIVE (NEGATIVE) 07/02/16 23:43 Urine Nitrate NEGATIVE (NEGATIVE) 07/02/16 23:43 Urine Bilirubin NEGATIVE (NEGATIVE) 07/02/16 23:43 Urine Urobilinogen NEGATIVE EU (0.2-1.0) 07/02/16 23:43 Ur Leukocyte Esterase NEGATIVE (NEGATIVE) 07/02/16 23:43 Urine RBC 1-3 /hpf (0-3) 07/02/16 23:43 Urine WBC 1-3 /hpf (0-3) 07/02/16 23:43 Ur Epithelial Cells Not Reported 07/02/16 23:43 Urine Mucus TRACE /lpf (NONE-1+) 07/02/16 23:43 Urine Glucose 1+ (NEGATIVE) H 07/02/16 23:43 Assessment & Plan Assessment: Patient is a 40 year old male with IGG4 related sclerosing disease with previous imaging showing evidence for autoimmune pancreatitis who presents to the ED with complaint of 5 days or persistent LUQ abdominal pain. Plan: # abdominal pain Given patient's description of his symptoms, location of pain, normal labs and similar presentation in 04/2016, suspect this is related to possible chronic autoimmune pancreatitis (despite normal lipase). Abdominal exam is otherwise benign, so will not repeat CT at this time. Will continue his home Azathioprine and consider GI vs Rheumatology consult regarding the benefit of adding prednisone. - cont symptom control with tylenol, toradol, dilaudid prn - IVF hydration with NS # DM2 Glucose stable on presentation, will monitor FS and cover with sliding scale prn. # dispo: admit to observation for symptom control # gen: clear liquid diet DVT ppx: lovenox if remains hospitalized for > 24 hrs Full code
[2016-07-03] MEDS: NS 1,000 ML IV SCH ×2 (04:48→21:36)
[2016-07-03] MEDS: KETOROLAC 15 MG/1 ML SDV IVP SCH ×3 (05:03→18:24)
[2016-07-03] MEDS: INSULIN LISPRO 100 UNIT/ML SC SCH ×3 (09:12→16:37)
[2016-07-03] MEDS: azaTHIOprine 50 MG TAB PO SCH (12:41)
[2016-07-03] MEDS ORDERED: oxyCODONE IR 5 MG TAB PO PRN (14:14)
--- NOTE | 2016-07-03 14:18 | HOSPPROG ---
Hospitalist Progress Note Assessment/Plan: 40 yo M w autoimmune disease, including possible autoimmune pancreatitis, here w abd pain ?pancreatitis: normal lipase but apparently had similar presentation in 04/18 w normal lipase and edematous pancreas continue clear liquid diet dc IV narcotics add scheduled tylenol dm: sugars at goal pain: continue current management, including toradol proph: lmwh dispo: inpatient Subjective: abdomeinal pain improved. no vomiting. tolerating clear liquid diet Objective: Vital Signs Temp Pulse Resp BP Pulse Ox 37.2 C 67 18 93/56 L 97 07/03/16 12:00 07/03/16 12:00 07/03/16 12:00 07/03/16 12:00 07/03/16 12:00 07/02/16 07/03/16 07/04/16 05:59 05:59 05:59 Intake Total 2419 Output Total 200 Balance 2219 - Physical Exam Constitutional: no apparent distress, appears nourished Eyes: PERRL, anicteric sclera Ears, Nose, Mouth, Throat: moist mucous membranes, hearing normal Cardiovascular: regular rate and rhythym, no murmur, rub, or gallop Respiratory: no respiratory distress, no rales or rhonchi Gastrointestinal: soft, non-tender abdomen, other (bowel sounds hypoactive but present) Genitourinary: No banks in urethra Skin: warm, normal color Musculoskeletal: full muscle strength, no muscle tenderness Neurologic: AAOx3 ICD10 Worksheet Patient Problems: Problems Problem Status Onset Abdominal pain Acute Pancreatitis Acute Febrile illness Acute Lymphadenopathy Acute
[2016-07-03] MEDS: ACETAMINOPHEN 500 MG TAB PO SCH ×2 (16:37→21:36)
[2016-07-03] MEDS ORDERED: ACETAMINOPHEN 325 MG TAB PO SCH (22:00)
[2016-07-03] MEDS ORDERED: PNEUMOCOCCAL 0.5ML VACCINE VIAL IM ONE (22:20)
[2016-07-03] MEDS ORDERED: PNEUMOCOCCAL 0.5ML VACCINE VIAL ONE (22:22)
[2016-07-04] MEDS: KETOROLAC 15 MG/1 ML SDV IVP SCH ×5 (00:37→23:52)
[2016-07-04] MEDS: ACETAMINOPHEN 500 MG TAB PO SCH (06:06)
[2016-07-04] MEDS: INSULIN LISPRO 100 UNIT/ML SC SCH ×3 (09:20→18:43)
[2016-07-04] MEDS: azaTHIOprine 50 MG TAB PO SCH (09:36)
[2016-07-04] MEDS: NS 1,000 ML IV SCH ×2 (09:40→19:00)
--- NOTE | 2016-07-04 11:33 | HOSPPROG ---
Hospitalist Progress Note Assessment/Plan: 40 yo M w autoimmune disease, including possible autoimmune pancreatitis, here w abd pain ?pancreatitis: normal lipase but apparently had similar presentation in 04/18 w normal lipase and edematous pancreas continue clear liquid diet worse after eating broth, hypoactive bowel sounds this is c/w pancreatitis 1. NPO 2. ivf, iv pain meds 3. check lipase dm: sugars at goal pain: continue current management, including toradol IV pain meds proph: lmwh dispo: inpatient Subjective: worse pain after drinking broth Objective: Vital Signs Temp Pulse Resp BP Pulse Ox 37.0 C 70 18 95/63 L 95 07/04/16 08:00 07/04/16 08:00 07/04/16 08:00 07/04/16 08:00 07/04/16 08:00 07/03/16 07/04/16 07/05/16 05:59 05:59 05:59 Intake Total 2419 2600 Output Total 200 Balance 2219 2600 - Physical Exam Constitutional: no apparent distress, appears nourished Eyes: PERRL, anicteric sclera Ears, Nose, Mouth, Throat: moist mucous membranes, hearing normal Cardiovascular: regular rate and rhythym, no murmur, rub, or gallop, No tachycardia Respiratory: no respiratory distress, no rales or rhonchi Gastrointestinal: other (soft. hypoactive bowel sounds. no rebound or guar) Genitourinary: No banks in urethra Skin: warm, normal color Musculoskeletal: full muscle strength, no muscle tenderness Neurologic: AAOx3 ICD10 Worksheet Patient Problems: Problems Problem Status Onset Abdominal pain Acute Pancreatitis Acute Febrile illness Acute Lymphadenopathy Acute
[2016-07-04] MEDS: HYDROmorphONE/DILAUDID 1 MG/ML SYR IVP PRN ×2 (12:28→18:15)
[2016-07-04] MEDS: ENOXAPARIN 40 MG/0.4 ML SYR SC SCH (12:31)
[2016-07-05] MEDS: KETOROLAC 15 MG/1 ML SDV IVP SCH ×2 (05:47→11:47)
[2016-07-05] MEDS: INSULIN LISPRO 100 UNIT/ML SC SCH ×3 (08:32→17:39)
[2016-07-05] MEDS: ENOXAPARIN 40 MG/0.4 ML SYR SC SCH (09:33)
[2016-07-05] MEDS: azaTHIOprine 50 MG TAB PO SCH (09:34)
[2016-07-05] MEDS: NS 1,000 ML IV SCH ×2 (13:51→17:14)
[2016-07-05] MEDS ORDERED: ACETAMINOPHEN 325 MG TAB PO PRN (14:06)
--- NOTE | 2016-07-05 14:06 | HOSPPROG ---
Hospitalist Progress Note Assessment/Plan: 40 yo M w autoimmune disease, including possible autoimmune pancreatitis, here w abd pain ?pancreatitis: normal lipase (again) but apparently had similar presentation in 04/18 w normal lipase and edematous pancreas now hungry w normal bowel sounds 1. clear liquid diet, po pain meds 2. add sucralfate 3. if does not tolerateclears, will call gi for egd 4. o evidence of GI bleeding dm: sugars at goal pain: continue current management, including toradol IV pain meds proph: lmwh dispo: inpatient Subjective: hungry. burning pain on R side Objective: Vital Signs Temp Pulse Resp BP Pulse Ox 36.9 C 84 16 103/59 L 93 07/05/16 08:00 07/05/16 08:00 07/05/16 08:00 07/05/16 08:00 07/05/16 08:00 07/04/16 07/05/16 07/06/16 05:59 05:59 05:59 Intake Total 2900 Balance 2900 - Physical Exam Constitutional: no apparent distress, appears nourished Eyes: PERRL, anicteric sclera Ears, Nose, Mouth, Throat: moist mucous membranes, hearing normal, ears appear normal Cardiovascular: regular rate and rhythym, no murmur, rub, or gallop, systolic murmur Respiratory: no respiratory distress, no rales or rhonchi Gastrointestinal: normoactive bowel sounds, soft, non-tender abdomen, No ascites , No dean's sign, No guarding, No rebound, No distension Genitourinary: no bladder fullness, No banks in urethra Skin: warm, normal color Musculoskeletal: full muscle strength, no muscle tenderness Neurologic: AAOx3 ICD10 Worksheet Patient Problems: Problems Problem Status Onset Abdominal pain Acute Pancreatitis Acute Febrile illness Acute Lymphadenopathy Acute
--- NOTE | 2016-07-05 14:42 | GDS ---
[f rep st] DISCHARGE SUMMARY DISCHARGE DIAGNOSES: 1. Suspected pancreatitis secondary to autoimmune process. 2. Diabetes. 3. IgG subclass 4 sclerosing disease. HOSPITAL COURSE: Please see admission history and physical by Dr. Jemima Vail. The patient p resented with abdominal pain. He had a previous presentation where he had a negative lipase and he matous pancreas. His clinical presentation was consistent with pancreatitis. He does not drink alc ohol. He was made n.p.o., given IV fluids. He felt better the first hospital day. Diet was advanc ed. He had increasing abdominal pain with hypoactive bowel sounds. Lipase was repeated and remaine d negative. He was made n.p.o., given IV pain medicines and IV fluids. Today, when I spoke with th e patient, he was hungry, so I have elected to advance his diet to clears, discontinue his IV pain m edicines and IV fluids. If he tolerates clears, he can be discharged. Discharge medicines remain u nchanged. If the patient does not tolerate, he will remain in the hospital overnight, EGD tomorrow with Gastro enterology. Greater than 30 minutes spent in the preparation of this discharge. /[id number]/MODL
[2016-07-05] MEDS: oxyCODONE IR 5 MG TAB PO PRN ×2 (16:37→21:03)
[2016-07-05] MEDS: SUCRALFATE 1 GM TAB PO SCH ×2 (16:38→20:23)
[2016-07-06] MEDS: oxyCODONE IR 5 MG TAB PO PRN ×2 (03:25→21:43)
[2016-07-06] MEDS: NS 1,000 ML IV SCH (03:26)
--- NOTE | 2016-07-06 09:24 | GCON ---
[f rep st] CONSULTATION CHIEF COMPLAINT: Left upper quadrant pain. HISTORY OF PRESENT ILLNESS: This 40-year-old gentleman was admitted to the hospital with a complaint of left upper quadrant pain. He is followed by Dr. Bang as an outpatient. He has a history of IgG4 sclerosing disease. He was diagnosed 2 years ago when he presented with fever, mediastinal adenopathy, right salivary gland enlargement and elevated IgG 4 levels. He also has a history of diabetes mellitus and hyperlipidemia. He has been maintained on Imuran as an outpatient. He has been managed by Rheumatology, Dr. Bang. He developed symptoms of abdominal pain about 4 days prior to admission with dull intense left upper quadrant pain that was not exacerbated by food. He had no associated nausea or vomiting. Pain was constant and reported as being 4/10 but at times the pain was more severe 10 out 10. He had presented to [facility] [place] and had labs, UA which was reportedly unremarkable. He was treated symptomatically and discharged home, but then presented back to the emergency department with continued pain. In the emergency department, he had LFTs and lipase that were normal. However, he had a CT scan that showed an edematous-appearing pancreas consistent with autoimmune pancreatitis. He was afebrile. I was asked to see the patient for evaluation for continued left upper quadrant pain. It is unclear from reviewing the medical records whether or not he has had pancreatitis before. The patient reports that he has not been on prednisone or steroids in the past. PAST MEDICAL HISTORY: IgG4-related sclerosing disease, diabetes mellitus, hyperlipidemia. PAST SURGICAL HISTORY: Remarkable for lymph node biopsy. SOCIAL HISTORY: Nonsmoker and nondrinker. The patient lives with his and children. MEDICATIONS: Prior to admission include: Imuran 50 mg daily, ranitidine, and metformin. REVIEW OF SYSTEMS: Negative for 10 systems other than in HPI. PHYSICAL EXAMINATION: VITAL SIGNS: Blood pressure 104/63, pulse 72, respiratory rate 15, 92% on room air, temperature 36.8. GENERAL: A very pleasant gentleman in no acute distress. HEENT: Normocephalic, atraumatic. EOMI. NECK: Supple. No cervical adenopathy. No thyromegaly. Mucous membranes moist. LUNGS: Clear. CARDIAC: Normal S1, S2 without murmur. ABDOMEN: Soft. Normal bowel sounds. Tenderness to palpation in the left upper quadrant. EXTREMITIES: Unremarkable, without clubbing, cyanosis, edema. SKIN: Warm, dry, intact without rashes. NEURO: Nonfocal. PSYCH: Alert, oriented x3. Appropriate affect. LABORATORY DATA: Hemoglobin 15.2, hematocrit 44, platelets 269, PT 12.3, INR 0.93, PTT 24.4. Serum chemistries: Lipase 108, AST 18, ALT 35, alkaline phosphatase 112, serum sodium 142, potassium 4.2, chloride 107, CO2 25, BUN 11, creatinine 0.7. IMPRESSION: A 40-year-old gentleman with a history of IgG4 sclerosing disease. It is unclear after reviewing the medical records if he has had previous diagnosis of autoimmune pancreatitis. Patient is on immunosuppressive therapy with Imuran. However, he presents with acute presentation of abdominal pain with CT findings suggestive of autoimmune pancreatitis. However, the patient has normal liver function tests and normal lipase. RECOMMENDATIONS: 1. Proceed with diagnostic upper endoscopy to rule out peptic ulcer disease. 2. Review of previous records and confirmation of previous diagnosis. Consideration of steroids for management treatment of autoimmune pancreatitis. We will follow with you. /[id number]/MODL MTDD
[2016-07-06] MEDS ORDERED: MIDAZOLAM 2 MG/2 ML VIAL ONE (09:57)
[2016-07-06] MEDS ORDERED: fentaNYL 100 MCG/2 ML INJ ONE (10:02)
[2016-07-06] MEDS ORDERED: PROPOFOL 200 MG/20 ML VIAL ONE (10:32)
--- NOTE | 2016-07-06 10:44 | GPN ---
[f rep st] PROCEDURE NOTE PROCEDURE PERFORMED: Esophagogastroduodenoscopy with biopsy. PREOPERATIVE DIAGNOSIS: Left upper quadrant pain. Rule out peptic ulcer disease. POSTOPERATIVE DIAGNOSES: 1. Duodenitis, gastritis. Status post small bowel biopsy, gastric antral biopsies. 2. History of IgG4 sclerosing disease with CT finding consistent with autoimmune pancreatitis. INDICATIONS: 40-year-old gentleman admitted to the hospital with complaint of left upper quadrant pain. He is followed by Dr. Bang as an outpatient, rheumatology. He has a history of IgG4 sclerosing disease. He had presented 2 years ago with fever, mediastinal adenopathy, and enlarged right salivary gland. He did have elevated IgG4 levels at that time and was treated with immunosuppressive therapy. He has done well until recently. He presented with left upper quadrant pain. No nausea, vomiting. He had normal lipase, normal liver function tests; however, CT scan did show an edematous-appearing pancreas , consistent with autoimmune pancreatitis. He has persistent left upper quadrant pain. He presents today for further evaluation to exclude any other upper abdominal tract disease that might explain abdominal pain. PHYSICAL EXAMINATION: VITAL SIGNS: Stable. LUNGS: Clear. CARDIAC: Normal S1, S2 without murmur. PERMIT: The procedure was explained to the patient. Risks and benefits of the procedure were outlined to the patient. Informed consent was obtained. PREOPERATIVE MEDICATIONS: Per Anesthesia. FINDINGS AND PROCEDURE: The patient was placed in left lateral decubitus position. The GIF-180 endoscope was passed through the oropharynx under direct visualization into the proximal esophagus. The esophagus was normal with the GE junction at 40 cm. Endoscope was passed through the stomach and through the pylorus into first and second portions of duodenum. Duodenal sweep was remarkable for some mild erythematous changes of the duodenal mucosa in the second and first portions of duodenum, consistent with duodenitis. Random biopsies were obtained. Endoscope was brought back into the stomach. Retroflexed view of the stomach revealed a normal angularis, fundus, and cardia. Endoscope was un-retroflexed. Antrum and body were remarkable for erythematous and edematous changes, consistent with mild to moderate gastritis. Random biopsies of the antrum were obtained for H pylori. Endoscope was then un-retroflexed and withdrawn. IMPRESSION: 1. Normal-appearing esophagus. 2. Mild to moderate gastritis. 3. Duodenitis. 4. History of IgG4 sclerosing disease with known elevated IgG 4 levels and clinical presentation consistent with autoimmune pancreatitis. RECOMMENDATIONS: 1. Clear liquid diet. Advance as tolerated. Would continue on proton pump inhibitor, pantoprazole 40 mg b.i.d. 2. If antral biopsies are consistent with H pylori gastritis, we will treat with a course of antibiotics, clarithromycin, amoxicillin, and PPI x14 days. 3. Given the patient's known history of IgG4 autoimmune disease and clinical presentation of left upper quadrant pain and CT findings consistent with autoimmune pancreatitis, would start him on IV Solu-Medrol and continue on Imuran. The patient may need his Imuran dose increased. 4. We will check QuantiFERON and HB surface antigen. We will follow with you. /[id number]/MODL MTDD
[2016-07-06] MEDS: ENOXAPARIN 40 MG/0.4 ML SYR SC SCH (11:51)
[2016-07-06] MEDS: methylPREDNISolone SOD SUCC 40 MG/ML VIAL IVP SCH ×2 (11:51→21:34)
[2016-07-06] MEDS: azaTHIOprine 50 MG TAB PO SCH (11:52)
[2016-07-06] MEDS: SUCRALFATE 1 GM TAB PO SCH ×4 (11:52→21:33)
[2016-07-06] MEDS: INSULIN LISPRO 100 UNIT/ML SC SCH ×3 (11:52→21:33)
--- NOTE | 2016-07-06 14:28 | HOSPPROG ---
Hospitalist Progress Note Assessment/Plan: 40 yo M w autoimmune disease, including possible autoimmune pancreatitis, here w abd pain ?pancreatitis: normal lipase (again) but apparently had similar presentation in 04/18 w normal lipase and edematous pancreas failed po challenge 07/05 no source of pain on egd GI consult MD suspects this is pancreatitis steroids started now tolerating clears, will dc in AM if continues to do so dm: sugars at goal pain: continue current management, including toradol po pain meds proph: lmwh dispo: inpatient Subjective: case d/w dr ambrose. egd w gastritis but no clear cause of pain Objective: Vital Signs Temp Pulse Resp BP Pulse Ox 36.8 C 75 14 110/74 96 07/06/16 10:59 07/06/16 10:59 07/06/16 10:59 07/06/16 10:59 07/06/16 10:59 07/05/16 07/06/16 07/07/16 05:59 05:59 05:59 Intake Total 2900 1350 250 Output Total 0 Balance 2900 1350 250 - Physical Exam Constitutional: no apparent distress, appears nourished Eyes: PERRL, anicteric sclera Ears, Nose, Mouth, Throat: moist mucous membranes, hearing normal Cardiovascular: regular rate and rhythym, no murmur, rub, or gallop Respiratory: no respiratory distress, no rales or rhonchi Gastrointestinal: normoactive bowel sounds, soft, non-tender abdomen, No guarding, No rebound, No distension Genitourinary: No banks in urethra Skin: warm, normal color Musculoskeletal: full muscle strength, no muscle tenderness ICD10 Worksheet Patient Problems: Problems Problem Status Onset Abdominal pain Acute Pancreatitis Acute Febrile illness Acute Lymphadenopathy Acute
[2016-07-06] MEDS ORDERED: methylPREDNISolone SOD SUCC 40 MG/ML VIAL IVP SCH (21:00)
[2016-07-07] MEDS: oxyCODONE IR 5 MG TAB PO PRN (06:09)
[2016-07-07 08:31] VITALS: RESP 16
[2016-07-07] MEDS: ENOXAPARIN 40 MG/0.4 ML SYR SC SCH (09:01)
[2016-07-07] MEDS: INSULIN LISPRO 100 UNIT/ML SC SCH ×2 (09:01→11:35)
[2016-07-07] MEDS: methylPREDNISolone SOD SUCC 40 MG/ML VIAL IVP SCH (09:01)
[2016-07-07] MEDS: SUCRALFATE 1 GM TAB PO SCH ×2 (09:01→11:35)
[2016-07-07] MEDS: azaTHIOprine 50 MG TAB PO SCH (09:01)
[2016-07-07] MEDS ORDERED: POLYETHYLENE GLYCOL 3350 17 GM PKT PO PRN (09:13)
[2016-07-07] MEDS ORDERED: BISACODYL 10 MG SUPP PR PRN (09:13)
[2016-07-07] MEDS ORDERED: LACTULOSE 20 GM/30 ML UDCUP PO PRN (09:13)
[2016-07-07] MEDS ORDERED: MAGNESIUM HYDROXIDE 30 ML UDCUP PO PRN (09:13)
[2016-07-07 11:23] VITALS: BP 104/70; PULSE 76; TEMP 97.2; O2SAT 94
--- NOTE | 2016-07-07 12:10 | SOAPPROG ---
SOAP Progress Note Assessment/Plan: Assessment: Pain resolved. 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 Tolerating PO. Plan: 1. Regular diet. 2. Increase Imuran to 100 mg a day. Will need to monitor CBC q 2 weeks on increase dose 3. Ok to discharge on Prednisone 40 mg a day with taper. Taper by 5 mg every 7 days until off. 4. Follow up with Rheumatology in 1 -2 weeks 5. Can follow also follow up with GI, myself or my PA in 1 - 2 weeks 07/07/16 12:06 Subjective: CC: LUQ pain EGD with gastritis. Pain improved after starting on solumedrol. Objective: Vital Signs Temp Pulse Resp BP Pulse Ox 36.2 C 76 16 104/70 94 07/07/16 11:20 07/07/16 11:20 07/07/16 11:20 07/07/16 11:20 07/07/16 11:20 07/06/16 07/07/16 07/08/16 05:59 05:59 05:59 Intake Total 1350 1650 Output Total 0 Balance 1350 1650 Generic Name Dose Route Start Last Admin Trade Name Freq PRN Reason Stop Dose Admin Acetaminophen 650 mg 07/05/16 14:06 Tylenol PO 01/01/17 14:05 Q4HRS PRN Pain, Mild/Fever, Can Take PO Azathioprine 50 mg 07/03/16 11:30 07/07/16 09:01 Imuran PO 12/30/16 11:29 50 mg DAILY ANIVAL Administration Bisacodyl 10 mg 07/07/16 09:13 Dulcolax Rectal NE 01/03/17 09:12 DAILY PRN Constipation Protocol Dextrose 25 gm 07/03/16 03:39 Dextrose 50% Syringe IVP 12/30/16 03:38 PRN PRN Hypoglycemia Enoxaparin Sodium 40 mg 07/04/16 12:00 07/07/16 09:01 Lovenox SC 12/31/16 11:59 40 mg DAILY ANIVAL Administration Insulin Human Lispro 0 unit 07/03/16 08:00 07/07/16 11:35 Humalog Lispro SC 12/30/16 07:59 4 units TIDMEAL ANIVAL Administration Protocol Lactulose 20 gm 07/07/16 09:13 Cephulac PO 01/03/17 09:12 TID PRN Constipation Protocol Magnesium Hydroxide 30 ml 07/07/16 09:13 Milk Of Magnesia PO 01/03/17 09:12 DAILY PRN Constipation Protocol Methylprednisolone Sodium Succinate 40 mg 07/06/16 11:30 07/07/16 09:01 Solu-Medrol IVP 01/02/17 11:29 40 mg Q12 ANIVAL Administration Ondansetron HCl 4 mg 07/03/16 03:37 Zofran IVP 12/30/16 03:36 Q4HRS PRN Nausea/Vomiting, Can't Take PO Oxycodone HCl 10 mg 07/05/16 14:06 07/07/16 06:09 Oxycodone Ir PO 07/15/16 14:05 10 mg Q4HRS PRN Administration Pain, Severe Able to Take PO Polyethylene Glycol 17 gm 07/07/16 09:13 07/07/16 10:56 Miralax PO 01/03/17 09:12 17 gm DAILY PRN Administration Constipation, patient prefers Protocol Senna/Docusate Sodium 1 - 2 tab 07/07/16 21:00 Senokot-S PO 01/03/17 20:59 BID ANIVAL Protocol Sucralfate 1 gm 07/05/16 17:30 07/07/16 11:35 Carafate PO 01/01/17 17:29 1 gm ACHS ANIVAL Administration Discontinued Medications Generic Name Dose Route Start Last Admin Trade Name Freq PRN Reason Stop Dose Admin Acetaminophen 650 mg 07/03/16 03:37 Tylenol PO 12/30/16 03:36 Q4HRS PRN Pain, Mild/Fever, Can Take PO Acetaminophen 1,000 mg 07/03/16 15:00 07/04/16 06:06 Tylenol PO 12/30/16 14:59 1,000 mg Q8 ANIVAL Administration Famotidine 20 mg 07/03/16 00:05 07/03/16 02:05 Pepcid PO 07/03/16 00:06 Not Given EDNOW ONE Famotidine/Sodium Chloride Confirm 07/03/16 00:25 Pepcid 20 Mg (Premix) Administered 07/03/16 00:26 Dose 20 mg IV .STK-MED ONE Fentanyl Confirm 07/06/16 10:02 Sublimaze Administered 07/06/16 10:03 Dose 100 mcg .ROUTE .STK-MED ONE Hydromorphone HCl 1 mg 07/03/16 01:03 07/03/16 01:09 Dilaudid IVP 07/03/16 01:04 1 mg EDNOW ONE Administration Hydromorphone HCl 1 mg 07/03/16 02:55 07/03/16 03:06 Dilaudid IVP 07/03/16 02:56 1 mg EDNOW ONE Administration Hydromorphone HCl 0.2 - 0.4 mg 07/03/16 03:37 Dilaudid IVP 07/13/16 03:36 Q4HRS PRN Pain, Severe Unable to Take PO Hydromorphone HCl 0.2 - 0.4 mg 07/04/16 11:29 07/04/16 18:15 Dilaudid IVP 07/14/16 11:28 0.4 mg Q2HRS PRN Administration Pain, Severe Unable to Take PO Sodium Chloride 1,000 mls @ 0 mls/hr 07/03/16 00:05 07/03/16 00:20 Ns IV 07/03/16 00:06 1,000 mls ONCE ONE Administration Wide Open Sodium Chloride 1,000 mls @ 0 mls/hr 07/03/16 00:05 07/03/16 01:12 Ns IV 07/03/16 00:06 1,000 mls ONCE ONE Administration Wide Open Famotidine/Sodium Chloride 50 mls @ 200 mls/hr 07/03/16 00:28 07/03/16 00:30 Pepcid 20 Mg (Premix) IV 07/03/16 00:42 50 mls EDNOW ONE Administration Sodium Chloride 1,000 mls @ 100 mls/hr 07/03/16 03:45 07/05/16 13:51 Ns IV 12/30/16 03:44 1,000 mls CONT ANIVAL Administration Sodium Chloride 1,000 mls @ 100 mls/hr 07/05/16 17:00 07/06/16 03:26 Ns IV 01/01/17 16:59 1,000 mls CONT ANIVAL Administration Ketorolac Tromethamine 15 mg 07/03/16 00:07 07/03/16 00:22 Toradol IVP 07/03/16 00:08 15 mg EDNOW ONE Administration Ketorolac Tromethamine 15 mg 07/03/16 06:00 07/05/16 11:47 Toradol IVP 07/07/16 18:01 15 mg Q6HRS ANIVAL Administration Methylprednisolone Sodium Succinate 40 mg 07/06/16 21:00 Solu-Medrol IVP 01/02/17 20:59 Q12 ANIVAL Midazolam HCl Confirm 07/06/16 09:57 Versed Administered 07/06/16 09:58 Dose 2 mg .ROUTE .STK-MED ONE Ondansetron HCl 4 mg 07/03/16 00:05 07/03/16 00:24 Zofran IVP 07/03/16 00:06 4 mg EDNOW ONE Administration Ondansetron HCl 4 mg 07/03/16 03:37 Zofran Odt PO 12/30/16 03:36 Q4HRS PRN Nausea/Vomiting, Use 1st Oxycodone HCl 5 mg 07/03/16 14:14 07/04/16 09:36 Oxycodone Ir PO 07/13/16 14:13 5 mg Q4HRS PRN Administration Pain, Severe Able to Take PO Pneumococcal Polyvalent Vaccine 0.5 ml 07/03/16 22:20 07/03/16 22:38 Pneumovax 23 IM 07/03/16 22:21 0.5 ml .ONCE ONE Administration Pneumococcal Polyvalent Vaccine Confirm 07/03/16 22:22 Pneumovax 23 Administered 07/03/16 22:23 Dose 0.5 ml .ROUTE .STK-MED ONE Propofol Confirm 07/06/16 10:32 Diprivan Administered 07/06/16 10:33 Dose 200 mg .ROUTE .STK-MED ONE Physical Exam - Physical Exam General Appearance: alert, no apparent distress Respiratory: lungs clear, normal breath sounds Abdomen: normal bowel sounds, non-tender, soft Skin: normal color, warm/dry Neuro/Psych: no motor/sensory deficits, alert, normal mood/affect ICD10 Worksheet Patient Problems: Problems Problem Status Onset Abdominal pain Acute Pancreatitis Acute Febrile illness Acute Lymphadenopathy Acute
[2016-07-07] MEDS ORDERED: SENNOSIDES/DOCUSATE SODIUM TAB PO SCH (21:00)
--- NOTE | 2016-07-07 21:34 | GDS ---
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 3. Duodenitis and gastritis. 4. Diabetes type 2. HISTORY: The patient is a 40-year-old male with IgG4 sclerosing disease who presents with left upper quadrant pain. His lipase is normal; however, he has been found to have pancreatic inflammation on previous CT scans. This is his 2nd admission for the same pain. Gastroenterology was consulted and he underwent EGD. This did show some mild gastritis and duodenitis, but was not felt to explain his pain. Autoimmune pancreatitis was felt to be the most likely etiology. He was started on empiric steroids and had rapid improvement of his pain, was able to advance his diet. Gastroenterology recommends increasing his Imuran to 100 mg p.o. daily and discharging with steroids which could be tapered slowly as an outpatient. Proton pump inhibitor was started for the gastritis and antral biopsies are pending. DISCHARGE MEDICATIONS: Please see computer record for full detailed list. NEW MEDICATIONS: 1. Protonix 40 mg p.o. twice daily. 2. Prednisone 40 mg p.o. daily. Recommended taper per Gastroenterology: Taper by 5 mg every 7 days until off. 3. Increase Imuran to 100 mg p.o. daily. Need to monitor CBC every 2 weeks on this increased dose. ADDITIONAL DISCHARGE INSTRUCTIONS: 1. Follow up gastric biopsy, rule out H pylori. Treat with antibiotics if positive. 2. Follow up with Dr. Beltran of Gastroenterology in 1 week. 3. Follow up with Dr. Bang of Rheumatology. Greater than 30 minutes' time was spent arranging this discharge. Patient was seen and examined by me on the day of discharge. /[id number]/MODL MTDD
[2016-07-08 17:21] LABS: IMMUNOGLOBULIN G3 63.1 mg/dL; IMMUNOGLOBULIN G4 61.2 mg/dL
== END 2016-07-07 13:35 | disposition home or self-care (01) | DRG 439 ==
LOC: F3N 07-03 04:28 → OBSVTOIN 07-04 11:30
PROVIDERS: ADMIT Internal Medicine; ATTEND Internal Medicine
DX: K86.1 Other chronic pancreatitis (principal); D80.3 Selective deficiency of immunoglobulin G [IgG] subclasses; K29.80 Duodenitis without bleeding; K29.70 Gastritis, unspecified, without bleeding; E11.9 Type 2 diabetes mellitus without complications; E78.5 Hyperlipidemia, unspecified; Z23 Encounter for immunization; Z91.041 Radiographic dye allergy status
CPT/HCPCS: 82787-90; 96365; G0009; G0378; J1170; J1650; J1815; J1885; J2250; J2405; J2704; J3010; J7500

== ENCOUNTER 2017-02-16 21:55 | Inpatient (IN) | payer OTHER ==
--- NOTE | 2017-02-16 22:24 | EDPHY ---
H & P Stated Complaint: EPIGASTRIC PAIN, RADIATE TO R FLANK HPI/ROS: HPI CHIEF COMPLAINT: Abdominal pain since January 30 HISTORY OF PRESENT ILLNESS: This patient 41-year-old male, significant past medical history for diabetes, and pancreatitis, presents emergency room with epigastric and right upper quadrant abdominal pain that radiates to his back. He states has been present since January 30. It is now February 16. He has seen his primary care doctor referred to have an ultrasound tomorrow. However he could not tolerate the pain this evening. He describes it as sharp stabbing epigastric right upper quadrant radiating to the back. No nausea vomiting. No fever. No chest pain or shortness of breath. Denies lower abdominal pain. He tells me his primary care doctor thinks it is his gallbladder. Of this patient is [place]-speaking only. [employer] Dispatcher in the room was used for history and review of systems. Past Medical History: Diabetes, pancreatitis Past Surgical History: No surgical history. Social History: Denies daily use drugs alcohol tobacco products. Family History: Noncontributory ROS REVIEW OF SYSTEMS: A comprehensive 10 point review of systems is otherwise negative aside from elements mentioned in the history of present illness. Exam Constitutional triage nursing summary reviewed, vital signs reviewed, awake/ alert. Eyes normal conjunctivae and sclera, EOMI, PERRLA. HENT normal inspection, atraumatic, moist mucus membranes, no epistaxis, neck supple/ no meningismus, no raccoon eyes. Respiratory clear to auscultation bilaterally, normal breath sounds, no respiratory distress, no wheezing. Cardiovascular rate normal, regular rhythm, no murmur, no edema, distal pulses normal. Gastrointestinal tender palpation epigastric and right upper quadrant,, no rebound, no guarding, normal bowel sounds, no distension, no pulsatile mass. Genitourinary no CVA tenderness. Musculoskeletal no midline vertebral tenderness, full range of motion, no calf swelling, no tenderness of extremities, no meningismus, good pulses, neurovascularly intact. Skin pink, warm, & dry, no rash, skin atraumatic. Neurologic awake, alert and oriented x 3, AAOx3, moves all 4 extremities equally, motor intact, sensory intact, CN II-XII intact, normal cerebellar, normal vision, normal speech. Psychiatric normal mood/affect. Heme/Lymph/Immune no lymphadenopathy. Differential diagnosis includes but is not limited to and in no particular order : Bowel obstruction, appendicitis, gallbladder disease, diverticulitis, colitis , enteritis, perforated viscus, gastritis, GERD, esophagitis, urinary tract infection, pyelonephritis, kidney stones Medical Decision Making: Plan for this patient IV establishment IV fluid bolus , Dilaudid for acute pain control, will obtain an ultrasound right upper quadrant, check blood work including lipase, LFTs, CBC EKG and troponin. Re- evaluate. Re-evaluation: Previous records reviewed. Shows history of you autoimmune pancreatitis, duodenitis, gastritis, sclerosis EKG interpretation by me on record in [employer] system. Impression time of EKG 1 sinus rhythm rate of 78 I do not appreciate acute ischemic change. 2345: Ultrasound called to me by Dr. Quezada unable to visualize his gallbladder. When we compare this to his previous CTs they were unable to see his gallbladder on CT scans. He has not had this surgically removed. We question if he did not developed a gallbladder. He does have fatty liver on ultrasound. 1229: Patient lipase noted to be elevated. Having ongoing epigastric pain will be medicated. Most likely admit to the hospital service for acute pancreatitis. 1230: I did re-evaluate him he still has epigastric abdominal pain. Will be medicated. 1245: Spoke with Dr. Schultz who agrees to admit this patient. Reason for admission abdominal pain and dehydration and acute pancreatitis. Source: Patient - Personal History Current Tetanus Diphtheria and Acellular Pertussis (TDAP): Yes Tetanus Vaccine Date: LESS THAN 10 YEARS - Medical/Surgical History Hx Asthma: No Hx Chronic Respiratory Disease: No Hx Diabetes: Yes Hx Cardiac Disease: No Hx Renal Disease: No Hx Cirrhosis: No Hx Alcoholism: No Hx HIV/AIDS: No Hx Splenectomy or Spleen Trauma: No Other PMH: R arm lymph node biopsy 09/2013 neg, NIDDM, IGg4 disease, ? autoimmune pancreatitis. - Social History Smoking Status: Never smoked Constitutional: Initial Vital Signs Temperature (C) 36.5 C 02/16/17 22:03 Heart Rate 88 02/16/17 22:03 Respiratory Rate 18 02/16/17 22:03 Blood Pressure 139/90 H 02/16/17 22:03 O2 Sat (%) 97 02/16/17 22:03 O2 Delivery Mode Room Air Allergies/Adverse Reactions: No Known Allergies Allergy (Unverified 02/17/17 09:38) Home Medications: Medication Instructions Recorded azaTHIOprine [Imuran 50 mg (*)] 100 mg PO DAILY #60 tab 07/07/16 Ibuprofen [Motrin (*)] 200 mg PO DAILY PRN 02/17/17 azaTHIOprine [Imuran 50 mg (*)] 50 mg PO HS 02/17/17 metFORMIN HCL [Glucophage 1000 mg] 1,000 mg PO BIDMEAL 02/17/17 Medical Decision Making - Data Points Laboratory Results: Laboratory Results 02/17/17 05:00 02/17/17 05:00 02/17/17 05:00 IgG Total 973 mg/dL mg/dL (767 - 1590) IgG1 624 mg/dL mg/dL (341 - 894) IgG2 222 mg/dL mg/dL (171 - 632) IgG3 23.4 mg/dL mg/dL IgG4 65.9 mg/dL mg/dL Medications Given: Hydromorphone HCl (Dilaudid) 0.5 - 1 mg IVP Q3HRS PRN PRN Reason: Pain, Severe Unable to Take PO Stop: 02/27/17 01:06 Last Admin: 02/17/17 15:23 Dose: 0.5 mg Insulin Human Lispro (Humalog Lispro) 0 unit SC TIDMEAL ANIVAL PRN Reason: Protocol Stop: 08/16/17 07:59 Last Admin: 02/18/17 17:11 Dose: Not Given Methylprednisolone Sodium Succinate (Solu-Medrol) 20 mg IVP Q8HRS [facility] Stop: 08/17/17 13:59 Last Admin: 02/18/17 21:19 Dose: 20 mg Ondansetron HCl (Zofran) 4 mg IVP Q4HRS PRN PRN Reason: Nausea/Vomiting, Can't Take PO Stop: 08/16/17 01:06 Last Admin: 02/17/17 15:45 Dose: 4 mg Pantoprazole Sodium (Protonix) 40 mg IVP BID [facility] Stop: 08/16/17 08:59 Last Admin: 02/18/17 21:19 Dose: 40 mg Sucralfate (Carafate Suspension) 1 gm PO ACHS [facility] Stop: 08/16/17 07:29 Last Admin: 02/18/17 21:19 Dose: 1 gm Discontinued Medications Hydromorphone HCl (Dilaudid) 1 mg IVP EDNOW ONE Stop: 02/16/17 22:33 Last Admin: 02/16/17 22:46 Dose: 1 mg Hydromorphone HCl (Dilaudid) 0.5 mg IVP EDNOW ONE Stop: 02/17/17 00:44 Last Admin: 02/17/17 00:46 Dose: 0.5 mg Sodium Chloride (Ns) 1,000 mls @ 0 mls/hr IV EDNOW ONE; Wide Open PRN Reason: Protocol Stop: 02/16/17 22:33 Last Admin: 02/16/17 22:46 Dose: 1,000 mls Sodium Chloride (Ns) 1,000 mls @ 0 mls/hr IV ONCE ONE PRN Reason: Wide Open Stop: 02/17/17 00:29 Last Admin: 02/17/17 00:42 Dose: 1,000 mls Lactated Ringer's (Lr) 1,000 mls @ 150 mls/hr IV CONT ANIVAL Stop: 08/16/17 01:29 Last Admin: 02/18/17 08:27 Dose: 1,000 mls Ondansetron HCl (Zofran) 4 mg IVP EDNOW ONE Stop: 02/16/17 22:33 Last Admin: 02/16/17 22:46 Dose: 4 mg Departure - Departure Disposition: [facility] Acute Clinical Impression: Pancreatitis Qualifiers: Chronicity: acute Pancreatitis type: other Acute pancreatitis complication: unspecified Qualified Code(s): K85.80 - Other acute pancreatitis without necrosis or infection Condition: Good
[2017-02-16] MEDS ORDERED: HYDROmorphONE/DILAUDID 1 MG/ML INJ IVP ONE (22:32)
[2017-02-16] MEDS ORDERED: NS 1,000 ML IV ONE (22:32)
[2017-02-16] MEDS ORDERED: ONDANSETRON 4 MG/2 ML VIAL IVP ONE (22:32)
--- NOTE | 2017-02-16 22:43 | CPEKG ---
Heart Rate: 78 RR Interval: 769 P-R Interval: 188 QRSD Interval: 88 QT Interval: 376 QTC Interval: 429 P [place]: 59 QRS [place]: 49 T Wave [place]: 47 EKG Severity - NORMAL ECG - EKG Impression: SINUS RHYTHM Electronically Signed By: Daryn Paez 16-Feb-2017 22:46:41
[2017-02-16 23:06] LABS: % IMMATURE GRANULYOCYTES 0.4 % (0.0-1.1); ABSOLUTE IMMATURE GRANULOCYTES 0.03 10^3/uL (0.00-0.10); ADD DIFF? NO; ADD MORPH? NO; ADD SCAN? NO; ATYPICAL LYMPHOCYTE FLAG 0 (0-99); FRAGMENT RBC FLAG 0 (0-99); HEMOGLOBIN 16.6 g/dL (13.7-17.5); LEFT SHIFT FLG 0 (0-99); LIPEMIA HEMOLYSIS FLAG 90 (0-99); MEAN CELL HEMOGLOBIN 32.5 pg (27.9-34.1); MEAN CELL HEMOGLOBIN CONCENTR. 36.1 g/dL (32.4-36.7); MEAN CELL VOLUME 90.2 fL (81.5-99.8); MEAN PLATELET VOLUME 9.9 fL (8.7-11.7); PLATELET CLUMPS FLAG 20 (0-99); PLATELET COUNT 280 10^3/uL (150-400); RED CELL DISTRIBUTION WIDTH 13.2 % (11.5-15.2)
[2017-02-16 23:15] LABS: APTT 24.6 SEC (23.0-38.0); INR 0.98 (0.83-1.16); PROTIME(PATIENT) 13.2 SEC (12.0-15.0)
[2017-02-16 23:17] LABS: ALANINE AMINOTRANSFERASE 38 IU/L (21-72); ALBUMIN 4.3 g/dL (3.5-5.0); ALKALINE PHOSPHATASE 123 IU/L (38-126); ANION GAP 17 mEq/L (8-16); ASPARTATE AMINOTRANSFERASE 21 IU/L (17-59); BILIRUBIN,TOTAL 0.4 mg/dL (0.1-1.4); BILIRUBIN-CONJUGATED 0.2 mg/dL (0.0-0.5); BILIRUBIN-UNCONJUGATED 0.2 mg/dL (0.0-1.1); CALCIUM 9.3 mg/dL (8.5-10.4); CARBON DIOXIDE 19 mEq/l (22-31); CHLORIDE 106 mEq/L (97-110); CREATININE 0.8 mg/dL (0.7-1.3); GLOMERULAR FILTRATION RATE > 60; GLUCOSE 142 mg/dL (70-100); SODIUM 142 mEq/L (134-144); TOTAL PROTEIN 7.1 g/dL (6.3-8.2)
[2017-02-16 23:28] LABS: TROPONIN I < 0.012 ng/mL (0.000-0.034)
[2017-02-16 23:57] LABS: COLOR PALE YELLOW; LEUKOCYTE ESTERASE,URINE NEGATIVE (NEGATIVE); NITRITE,URINE NEGATIVE (NEGATIVE)
[2017-02-17] MEDS ORDERED: NS 1,000 ML IV ONE (00:28)
[2017-02-17] MEDS ORDERED: HYDROmorphONE/DILAUDID 1 MG/ML INJ IVP ONE (00:43)
[2017-02-17] MEDS ORDERED: ONDANSETRON 4 MG/2 ML VIAL IVP PRN (01:07)
[2017-02-17] MEDS ORDERED: PROMETHAZINE HCL 25 MG/ML INJ IVP PRN (01:07)
[2017-02-17] MEDS ORDERED: LORazepam 2 MG/ML INJ IVP PRN (01:07)
[2017-02-17] MEDS ORDERED: D50W 25 GM/50 ML SYR IVP PRN (02:06)
[2017-02-17] MEDS: LR 1,000 ML IV SCH ×3 (02:14→15:45)
[2017-02-17] MEDS: HYDROmorphONE/DILAUDID 1 MG/ML INJ IVP PRN ×3 (03:22→15:23)
--- NOTE | 2017-02-17 03:28 | PDGENHP ---
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 He is a fair historian. EMR reviewed and case discussed with ED provider. HPI - Pleasant 41 yo M with pmhx significant for IgG sclerosis, autoimmune pancreatitis, DM II, hx of gastritis/duodenitis who presents to the ED today with complaints of acute on chronic epigastric and now RUQ abdominal pain. Patient describes pain as sharp, intermittent with baseline chronic pain that is worse with eating. Patient denies any fevers but has had some subjective chills. no diaphoresis but reports occasional flushing/sweaty palms. no nausea/ vomiting. no recent sick contacts. denies diarrhea. Patient reports his pain has been on going since 01/30/17 and progressively worsened. Patient was previously on protonix 40mg BID however he reports he ran out of medications 2 months ago. He is currently only on metformin bid, imuran, and motrin 1000mg at HS every night. Patient reports his abdominal pain is heightened immediately after eating. he also notes associated abdominal distension, gas and increased burping. Patient pain today is slightly different in that in addition to the epigastric pain he is also noting RUQ abdominal pain. Review of records show 06/2016 patient admitted for worsening abdominal pain. He underwent EGD showing diffuse gastritis/duodenitis. Bx neg for H.pylori. Patient was started on high dose PPI therapy BID, however he reports he ran out of his medications 2 months ago and never asked to have them refilled. He has not taken any over the counter anti-acids. History Information - Allergies/Home Medication List Allergies/Adverse Reactions: iv contrast Allergy (Uncoded 07/05/14 23:43) Home Medications: Acetaminophen [Tylenol ES 500 mg (*)] 1,000 mg PO BID PRN 07/03/16 [Last Taken 07/02/16] Cyanocobalamin [Vitamin B12 (*)] 1,000 mcg PO DAILY 07/03/16 [Last Taken ] diphenhydrAMINE [Benadryl 25 MG (*)] 25 mg PO Q4 PRN 07/03/16 [Last Taken Unknown] metFORMIN HCL [Glucophage 500 mg (*)] 1,000 mg PO DAILY 07/03/16 [Last Taken 06/16] Ibuprofen [Motrin (*)] 1,000 mg PO HS 02/17/17 [Last Taken 2 Days Ago ~02/15/17] I have personally reviewed and updated: family history, medical history, social history, surgical history - Past Medical History Additional medical history: IGG4 related sclerosing disease. autoimmune pancreatitis. DM2. Hyperlipidemia. hx gastritis/duodenitis - Surgical History Additional surgical history: lymph node biopsy. egd + bx - Family History Additional family history: denies any GI disorders in family. - Social History Smoking Status: Never smoked Alcohol Use: None Drug Use: None Additional social history: Patient lives here with and children. COR - FULL. Review of Systems Review of Systems: ROS: 10pt was reviewed & negative except for what was stated in HPI & below Constitutional: Reports: chills. Denies: fever, malaise, weight loss EENMT: Reports: no symptoms Cardiac: Reports: no symptoms Respiratory: Reports: other (shortness of breath with increased pain only. ). Denies: cough Gastrointestinal: Reports: abdominal pain (see hpi). Denies: vomitting, diarrhea, nausea Genitourinary: Reports: no symptoms. Denies: dysuria, hematuria Muscolosketal: Reports: no symptoms Skin: Reports: no symptoms Neurological: Reports: no symptoms. Denies: anxiety, depressed, numbness, tingling Hematologic/Lymphatic: Reports: no symptoms Physical Exam Physical Exam: Selected Entries 02/16/17 22:03 Blood Pressure Automatic Method Heart Rate 88 Respiratory 18 Rate O2 Sat (%) 97 Temperature (C) 36.5 C Blood Pressure 139/90 H Mean Arterial 106 H Pressure (MAP) O2 Delivery Room Air Mode Temperature Oral Source Temp Pulse Resp BP Pulse Ox 36.6 C 69 16 101/55 L 92 02/17/17 01:08 02/17/17 01:08 02/17/17 01:08 02/17/17 01:08 02/17/17 01:08 Constitutional: no apparent distress, uncomfortable (with movement or exam.), No chronically ill appearing Eyes: PERRL, anicteric sclera, EOMI, No scleral injection Ears, Nose, Mouth, Throat: dry mucous membranes, other (no nasal discharge. ), No poor dentition Cardiovascular: regular rate and rhythym, no murmur, rub, or gallop, pulses symmetric bilaterally, No systolic murmur, No edema Peripheral Pulses: 2+: dorsalis-pedis (R), dorsalis-pedis (L) Respiratory: no respiratory distress, no rales or rhonchi, clear to auscultation Gastrointestinal: normoactive bowel sounds, no palpable masses, tenderness ( epigastrium/RUQ. ), hepatosplenomegally, distension (but soft to palptation.), No dean's sign, No guarding, No rebound Genitourinary: No no bladder tenderness, No banks in urethra Skin: warm, normal color, No mottled, No rash Musculoskeletal: full muscle strength, No pain with ROM, No generalized weakness Neurologic: AAOx3, sensation intact bilaterally, other (grossly nonfocal exam. no facial droop. ), No weakness Psychiatric: interacting appropriately, not anxious, not encephalopathic, thought process linear Lab Data & Imaging Review 02/16/17 22:50 02/16/17 22:50 WBC 8.29 10^3/uL (3.80-9.50) 02/16/17 22:50 RBC 5.10 10^6/uL (4.40-6.38) 02/16/17 22:50 Hgb 16.6 g/dL (13.7-17.5) 02/16/17 22:50 Hct 46.0 % (40.0-51.0) 02/16/17 22:50 MCV 90.2 fL (81.5-99.8) 02/16/17 22:50 MCH 32.5 pg (27.9-34.1) 02/16/17 22:50 MCHC 36.1 g/dL (32.4-36.7) 02/16/17 22:50 RDW 13.2 % (11.5-15.2) 02/16/17 22:50 Plt Count 280 10^3/uL (150-400) 02/16/17 22:50 MPV 9.9 fL (8.7-11.7) 02/16/17 22:50 Neut % (Auto) 61.3 % (39.3-74.2) 02/16/17 22:50 Lymph % (Auto) 25.8 % (15.0-45.0) 02/16/17 22:50 [place] % (Auto) 8.4 % (4.5-13.0) 02/16/17 22:50 Eos % (Auto) 3.6 % (0.6-7.6) 02/16/17 22:50 Baso % (Auto) 0.5 % (0.3-1.7) 02/16/17 22:50 Nucleat RBC Rel Count 0.0 % (0.0-0.2) 02/16/17 22:50 Absolute Neuts (auto) 5.08 10^3/uL (1.70-6.50) 02/16/17 22:50 Absolute Lymphs (auto) 2.14 10^3/uL (1.00-3.00) 02/16/17 22:50 Absolute Monos (auto) 0.70 10^3/uL (0.30-0.80) 02/16/17 22:50 Absolute Eos (auto) 0.30 10^3/uL (0.03-0.40) 02/16/17 22:50 Absolute Basos (auto) 0.04 10^3/uL (0.02-0.10) 02/16/17 22:50 Absolute Nucleated RBC 0.00 10^3/uL (0-0.01) 02/16/17 22:50 Immature Gran % 0.4 % (0.0-1.1) 02/16/17 22:50 Immature Gran # 0.03 10^3/uL (0.00-0.10) 02/16/17 22:50 PT 13.2 SEC (12.0-15.0) 02/16/17 22:50 INR 0.98 (0.83-1.16) 02/16/17 22:50 APTT 24.6 SEC (23.0-38.0) 02/16/17 22:50 VBG Lactic Acid 1.9 mmol/L (0.7-2.1) 02/16/17 22:50 Sodium 142 mEq/L (134-144) 02/16/17 22:50 Potassium 4.0 mEq/L (3.5-5.2) 02/16/17 22:50 Chloride 106 mEq/L (97-110) 02/16/17 22:50 Carbon Dioxide 19 mEq/l (22-31) L 02/16/17 22:50 Anion Gap 17 mEq/L (8-16) H 02/16/17 22:50 BUN 16 mg/dL (7-23) 02/16/17 22:50 Creatinine 0.8 mg/dL (0.7-1.3) 02/16/17 22:50 Estimated GFR > 60 02/16/17 22:50 Glucose 142 mg/dL (70-100) H 02/16/17 22:50 Calcium 9.3 mg/dL (8.5-10.4) 02/16/17 22:50 Total Bilirubin 0.4 mg/dL (0.1-1.4) 02/16/17 22:50 Conjugated Bilirubin 0.2 mg/dL (0.0-0.5) 02/16/17 22:50 Unconjugated Bilirubin 0.2 mg/dL (0.0-1.1) 02/16/17 22:50 AST 21 IU/L (17-59) 02/16/17 22:50 ALT 38 IU/L (21-72) 02/16/17 22:50 Alkaline Phosphatase 123 IU/L (38-126) 02/16/17 22:50 Troponin I < 0.012 ng/mL (0.000-0.034) 02/16/17 22:50 Total Protein 7.1 g/dL (6.3-8.2) 02/16/17 22:50 Albumin 4.3 g/dL (3.5-5.0) 02/16/17 22:50 Lipase 2053 IU/L (23-300) H 02/16/17 22:50 Urine Color PALE YELLOW 02/16/17 23:30 Urine Appearance CLEAR 02/16/17 23:30 Urine pH 6.0 (5.0-7.5) 02/16/17 23:30 Ur Specific [place] 1.008 (1.002-1.030) 02/16/17 23:30 Urine Protein NEGATIVE (NEGATIVE) 02/16/17 23:30 Urine Ketones NEGATIVE (NEGATIVE) 02/16/17 23:30 Urine Blood NEGATIVE (NEGATIVE) 02/16/17 23:30 Urine Nitrate NEGATIVE (NEGATIVE) 02/16/17 23:30 Urine Bilirubin NEGATIVE (NEGATIVE) 02/16/17 23:30 Urine Urobilinogen NEGATIVE EU (0.2-1.0) 02/16/17 23:30 Ur Leukocyte Esterase NEGATIVE (NEGATIVE) 02/16/17 23:30 Urine Glucose NEGATIVE (NEGATIVE) 02/16/17 23:30 Imaging Review: ___ Ultrasound of the Abdomen Limited History: Abdominal pain Comparison: CT April 2016. Findings: Limited due to overlying bowel gas. Gallbladder: Gallbladder is not identified. Common bile duct is 7 mm in diameter which is normal. Liver: Diffusely increased in echogenicity and measures 15 cm in length. Main portal vein is patent. In the anterior aspect of the right lobe of the liver there is a hypoechoic 0.9 x 0.8 x 0.5 cm lesion. Renal: Right kidney measures 11 x 5 x 4 cm without hydronephrosis. Pancreas: Homogeneous without peripancreatic fluid. Pancreatic tail obscured by bowel gas. Aorta: Visualized upper abdominal aorta demonstrates no aneurysm. Impression: 1. Gallbladder not identified. 2. Borderline common bile duct 7 mm. 3. Hepatic steatosis with a 0.9 cm hypoechoic lesion in the right lobe. Suggest follow-up ultrasound in 6 months. 4. No ascites. 5. No aortic aneurysm. Findings and recommendations discussed with Emergency Department physician, Beto Cohen MD at 23:39 hour, 02/16/2017. Final report concurs with initial preliminary interpretation. Visualized and Interpreted imaging results: Yes Assessment & Plan Assessment: 41 yo M with with history of IgG4 sclerosis, autoimmune pancreatitis, DM II, HLD who presents with acute on chronic epigastric and now RUQ abdominal pain. Abdominal pain - suspect likely multiple causes including likely recurrence of gastritis/duodenitis in setting of missed ppi dosing x 2 months, high dose NSAID use daily and possibly acute on chronic pancreatitis with elevated lipase to 2000. Gallbladder is noted to be absent on US and recent CT abd imaging studies. possibly congenital absence as patient denies any history of cholecystectomy. No evidence of biliary obstruction either. Patient without any nausea/vomiting. Will treat with IVF, bowel rest, IV PPI BID. Pancreatitis Acute on chronic - hx of autoimmune pancreatitis. IVF. bowel rest. resume patient imuran when diet advanced. patient reports he is no longer on prednisone as instructed by his care team. DM II - controlled. holding metformin while npo. low dose ISS ordered, HLD - not currently on therapy. elevated AG - likely related to volume contraction. IVF overnight. repeat bmp in AM. FEN - IVF LR. electrolyte replacement prn. NPO. PPX - SCDs. holding anticoagulation. if not improvement in patient sx consider consult with GI in AM after re-assessment per day team. COR - FULL. Dispo - Patient admitted to observation status.
[2017-02-17 05:12] LABS: % IMMATURE GRANULYOCYTES 0.4 % (0.0-1.1); ABSOLUTE IMMATURE GRANULOCYTES 0.02 10^3/uL (0.00-0.10); ADD DIFF? NO; ADD MORPH? NO; ADD SCAN? NO; ATYPICAL LYMPHOCYTE FLAG 20 (0-99); FRAGMENT RBC FLAG 0 (0-99); HEMATOCRIT 40.6 % (40.0-51.0); HEMOGLOBIN 14.6 g/dL (13.7-17.5); LEFT SHIFT FLG 0 (0-99); LIPEMIA HEMOLYSIS FLAG 90 (0-99); MEAN CELL HEMOGLOBIN 32.4 pg (27.9-34.1); MEAN PLATELET VOLUME 9.9 fL (8.7-11.7); PLATELET CLUMPS FLAG 10 (0-99); PLATELET COUNT 228 10^3/uL (150-400); RED BLOOD CELL COUNT 4.51 10^6/uL (4.40-6.38); RED CELL DISTRIBUTION WIDTH 13.1 % (11.5-15.2)
[2017-02-17 05:29] LABS: INR 1.03 (0.83-1.16); PROTIME(PATIENT) 13.7 SEC (12.0-15.0)
[2017-02-17 05:30] LABS: APTT 25.8 SEC (23.0-38.0)
[2017-02-17 06:11] LABS: ALANINE AMINOTRANSFERASE 34 IU/L (21-72); ALBUMIN 3.1 g/dL (3.5-5.0); ALKALINE PHOSPHATASE 95 IU/L (38-126); ANION GAP 10 mEq/L (8-16); ASPARTATE AMINOTRANSFERASE 18 IU/L (17-59); BILIRUBIN,TOTAL 0.3 mg/dL (0.1-1.4); CALCIUM 8.3 mg/dL (8.5-10.4); CARBON DIOXIDE 22 mEq/l (22-31); CHLORIDE 112 mEq/L (97-110); CREATININE 0.7 mg/dL (0.7-1.3); GLOMERULAR FILTRATION RATE > 60; GLUCOSE 128 mg/dL (70-100); MAGNESIUM 1.8 mg/dL (1.6-2.3); POTASSIUM 4.4 mEq/L (3.5-5.2); SODIUM 144 mEq/L (134-144); TOTAL PROTEIN 5.5 g/dL (6.3-8.2)
[2017-02-17] MEDS: SUCRALFATE 1 GM/10 ML UDCUP PO SCH ×4 (07:52→20:20)
[2017-02-17] MEDS: INSULIN LISPRO 100 UNIT/ML SC SCH ×3 (07:52→18:00)
[2017-02-17] MEDS: PANTOPRAZOLE SODIUM 40 MG VIAL IVP SCH ×2 (07:52→20:20)
--- NOTE | 2017-02-17 09:44 | ASMTCASEMG ---
Living Arrangements What is your living Answers: With Spouse arrangement? Who do you live with? Type Of Residence What kind of residence do Answers: House you live in? Discharge Plan Comments Coordination Status Comments Notes: Pt is a 41 y/o man admitted for epigastric and LUQ abdominal pain. Pt will most likely d/c independent when medically stable w/ supportive . It is indicated that pt has 'we care' coverage. CM contacted [facility] to come evaluate for Medicaid eligibility. No therapies ordered at this time. CM available for changes. Plan: Independent Date Signed: 02/17/2017 09:44 AM Electronically Signed By:ASHVIN Vang
--- NOTE | 2017-02-17 16:33 | HOSPPROG ---
Hospitalist Progress Note Assessment/Plan: # Acute Pancreatitis - pt with history of autoimmune pancreatitis - lipase 2052 - oxygen saturations 94% on RA Abd ultrasound (personally reviewed and interpreted) no gallbladder and borderline CBD - cont NPO - cont IVF and IV pain meds - GI will consult with recs regarding steroid treatment # IgG4 sclerosis - on outpatient treatment and followed by ONC - cont hold imuran # DM - BS 122-250- NPO - cont SSI - cont to hold metformin # proph - lovenox # diet- NPO with IVF # dispo- > 2 [place] as the patient requires ongoing treatment of pancreatitis I have discussed the case with Dr. Nguyen - he will provide recs regarding steroid treatment Subjective: pain improved this am in RUQ/epigastric Objective: Vital Signs Temp Pulse Resp BP Pulse Ox 36.6 C 82 16 107/67 95 02/17/17 15:09 02/17/17 15:09 02/17/17 15:09 02/17/17 15:09 02/17/17 15:09 Laboratory Results 02/17/17 05:00 02/17/17 05:00 02/16/17 02/17/17 02/18/17 05:59 05:59 05:59 Intake Total 1500 Output Total 650 1000 Balance 850 -1000 PT 13.7 SEC (12.0-15.0) 02/17/17 05:00 INR 1.03 (0.83-1.16) 02/17/17 05:00 - Physical Exam Constitutional: appears nourished Eyes: anicteric sclera Ears, Nose, Mouth, Throat: moist mucous membranes Cardiovascular: regular rate and rhythym Respiratory: no respiratory distress Gastrointestinal: normoactive bowel sounds Genitourinary: no bladder fullness Skin: warm Musculoskeletal: No asymmetric calves Neurologic: AAOx3 Psychiatric: interacting appropriately Lymph, Heme, Immunologic: no cervical LAD ICD10 Worksheet Patient Problems: Problems Problem Status Onset Pancreatitis Acute Abdominal pain Acute Febrile illness Acute Lymphadenopathy Acute
[2017-02-17] MEDS ORDERED: GADOBUTROL 10 ML VIAL IVP ONE (18:04)
--- NOTE | 2017-02-17 19:37 | GCON ---
[f rep st] CONSULTATION INPATIENT CONSULTATION NOTE. REFERRING PHYSICIAN: Citlali Schultz MD REASON FOR CONSULTATION: Pancreatitis. CHIEF COMPLAINT: Abdominal pain. Briefly, Mr. Larkin is a pleasant 41-year-old male with a past medical history significant for IgG4 s clerosis and presumed autoimmune pancreatitis, as well as diabetes, who presented to the emergency ro om with approximately 2 weeks of epigastric and right-sided abdominal pain. He reports the pain was sharp, intermittent, and made worse with eating. He reported no fevers or chills. Given the ongoing , unrelapsing symptoms, he presented to the emergency room for evaluation. He reports no changes in his food choices. He reports no sick contacts. He has had no diarrhea. He further denies nausea an d vomiting. He believes he had a similar symptom complex in May of this year. At that time, he un derwent upper endoscopy. Was noted to have some gastritis and duodenitis. Proton pump inhibitor the rapy was helpful, but he has been off that therapy for approximately 2 months. At that time, as well , laboratory testing revealed a normal lipase. No imaging was done. In April 2016, he had abdomi nal discomfort as well. At that time, the pancreas was diffusely mildly enlarged with a "sausage-lik e "appearance suggestive of autoimmune pancreatitis. He has been managed locally with Rheumatology and has been on immunosuppressive therapy with Imuran. He reports he has been compliant with those therapies. He does not drink alcohol or smoke tobacco. HOME MEDICATIONS: Included Tylenol, vitamin B, Benadryl, Glucophage, ibuprofen, and Imuran. ALLERGIES: IV contrast dye. PAST MEDICAL HISTORY: Includes IgG4-related sclerosing disease, probable autoimmune pancreatitis (al though perhaps only 1 other documented episode of pancreatitis), diabetes, hyperlipidemia, as well as gastritis. SURGICAL HISTORY: Includes lymph node biopsy and upper endoscopy. FAMILY HISTORY: Negative for colon cancer, colon polyps, and autoimmune disease. SOCIAL HISTORY: He does not drink, smoke, or use drugs. He lives in [place] with his and danita germain. REVIEW OF SYSTEMS: A complete 10-point review was undertaken with the patient and is negative except for those details described in the History of Present Illness. PHYSICAL EXAM: This is a well-developed, cooperative male in no apparent distress. His pupils are e qual, round, reactive to light and accommodation. His sclerae are nonicteric. His oropharynx is tommy ar. He has good dentition. CARDIOVASCULAR: Exam reveals normal rate and rhythm without murmurs, ru bs, or gallops. He has no peripheral edema. RESPIRATORY: Exam reveals no respiratory distress. He has clear lungs. GI: Exam reveals normoactive bowel sounds without masses. He has tenderness in t he epigastrium and right upper quadrant. There is no hepatosplenomegaly. : Exam reveals no bladd er tenderness. SKIN: Exam is warm and dry without rash. MUSCULOSKELETAL: Exam reveals full muscle strength. NEUROLOGIC: Exam is nonfocal. PSYCH: Exam reveals normal mood and affect. JOINT: Exa m reveals no arthritis. LABORATORY TESTING: Shows sodium of 144, potassium of 4.4, chloride of 112, bicarb of 22, BUN of 11, creatinine of 0.7. White count of 5.34, hemoglobin of 14.6, hematocrit of 40.6, platelet count of 2 28. INR 1.03. Lipase on admission was 2053. Has fallen to 1661 today. IgG4 levels in 2013, were e levated. There have been no repeats recent. IMPRESSION/RECOMMENDATIONS: 1. Pancreatitis. I am concerned about the possibility of an acute episode of pancreatitis in the se tting of autoimmune IgG4 disease. The differential diagnosis could also include a medication-induced pancreatitis (Imuran has been associated with the development of pancreatitis). The fact that he lu d a prior "sausage-like" appearance of the pancreas on imaging is more suggestive of a chronic inflam matory process than chronic autoimmune pancreatitis. Repeating IgG4 levels and abdominal imaging may be helpful. In the setting of developing pancreatitis while on immunomodulator therapy, additional immunosuppression may be required. Luckily, he has improved significantly with conservative care so far this hospitalization, but relapse is likely. Chronic prednisone use may be necessary. I will di scuss his immunomodulator therapy with Dr. Bang in order to determine a plan related to those doses o f medications. He may benefit from a tapering dose of prednisone and chronic prednisone use. Altern atively, he may benefit from higher doses of Imuran. 2. Meanwhile, the patient should remain n.p.o. on intravenous proton pump inhibitor with analgesics and antiemetics as needed. /[id number]/MODL
[2017-02-17] MEDS ORDERED: ACETAMINOPHEN 650 MG SUPP PR PRN (21:31)
[2017-02-18 05:30] LABS: HEMATOCRIT 41.6 % (40.0-51.0); HEMOGLOBIN 14.8 g/dL (13.7-17.5); MEAN CELL HEMOGLOBIN 31.6 pg (27.9-34.1); MEAN CELL HEMOGLOBIN CONCENTR. 35.6 g/dL (32.4-36.7); MEAN CELL VOLUME 88.7 fL (81.5-99.8); RED BLOOD CELL COUNT 4.69 10^6/uL (4.40-6.38); RED CELL DISTRIBUTION WIDTH 12.8 % (11.5-15.2)
[2017-02-18 05:50] LABS: ANION GAP 14 mEq/L (8-16); CARBON DIOXIDE 22 mEq/l (22-31); CHLORIDE 107 mEq/L (97-110); CREATININE 0.7 mg/dL (0.7-1.3); GLOMERULAR FILTRATION RATE > 60; GLUCOSE 104 mg/dL (70-100); POTASSIUM 3.7 mEq/L (3.5-5.2); SODIUM 143 mEq/L (134-144)
[2017-02-18] MEDS: SUCRALFATE 1 GM/10 ML UDCUP PO SCH ×4 (08:27→21:19)
[2017-02-18] MEDS: PANTOPRAZOLE SODIUM 40 MG VIAL IVP SCH ×2 (08:27→21:19)
[2017-02-18] MEDS: LR 1,000 ML IV SCH (08:27)
[2017-02-18] MEDS: INSULIN LISPRO 100 UNIT/ML SC SCH ×3 (08:28→17:11)
--- NOTE | 2017-02-18 11:12 | PDMN ---
Medical Necessity Medical necessity: Patient meets inpatient criteria per physician note and [facility] [place] Pancreatitis - (RUQ/epigastric pain, pancreatic fibrosis on MRI, lipase 2052; history of autoimmune pancreatitis; NPO w/IV hydration, IV pain meds; anticipated LOS > 2 midnights.)
[2017-02-18] MEDS: methylPREDNISolone SOD SUCC 40 MG/ML VIAL IVP SCH ×2 (13:32→21:19)
--- NOTE | 2017-02-18 15:26 | HOSPPROG ---
Hospitalist Progress Note Assessment/Plan: # Acute Pancreatitis - pt with history of autoimmune pancreatitis - lipase 2052 - MRI abdomen (personally reviewed and interpreted) pancreatic duct stricture and some fibrosis no mass oxygen saturations 94% on RA - starting steroids for autoimmune pancreatitis -advance diet to clears this am - cont IVF and IV pain meds - can dc on PO steroids with outpatient Rheum follow up # IgG4 sclerosis - on outpatient treatment and followed by ONC - cont hold imuran - giving steroids # DM - BS 99-142- NPO - cont SSI - cont to hold metformin # proph - lovenox # diet- clears # dispo- > 2 [place] as the patient requires ongoing treatment of pancreatitis I have discussed the case with Dr. Nguyen - will start steroids today and advance diet as tolerates Subjective: pain resolved overnight Objective: Vital Signs Temp Pulse Resp BP Pulse Ox 36.8 C 85 18 94/66 L 93 02/18/17 11:32 02/18/17 11:32 02/18/17 11:32 02/18/17 11:32 02/18/17 11:32 Laboratory Results 02/18/17 05:16 02/18/17 05:16 02/17/17 02/18/17 02/19/17 05:59 05:59 05:59 Intake Total 2500 Output Total 1200 Balance 1300 PT 13.7 SEC (12.0-15.0) 02/17/17 05:00 INR 1.03 (0.83-1.16) 02/17/17 05:00 - Physical Exam Constitutional: appears nourished Eyes: anicteric sclera Ears, Nose, Mouth, Throat: dry mucous membranes Cardiovascular: regular rate and rhythym Respiratory: no respiratory distress, no rales or rhonchi Gastrointestinal: normoactive bowel sounds, No tenderness, No guarding, No rebound Genitourinary: no bladder fullness Skin: warm Musculoskeletal: No asymmetric calves Neurologic: AAOx3 Psychiatric: interacting appropriately Lymph, Heme, Immunologic: no cervical LAD ICD10 Worksheet Patient Problems: Problems Problem Status Onset Pancreatitis Acute Abdominal pain Acute Febrile illness Acute Lymphadenopathy Acute
[2017-02-18 18:04] LABS: IMMUNOGLOBULIN G3 23.4 mg/dL; IMMUNOGLOBULIN G4 65.9 mg/dL
[2017-02-19] MEDS: methylPREDNISolone SOD SUCC 40 MG/ML VIAL IVP SCH (05:19)
[2017-02-19 07:57] VITALS: BP 91/54; PULSE 69; RESP 16; TEMP 98; O2SAT 96
[2017-02-19] MEDS: PANTOPRAZOLE SODIUM 40 MG VIAL IVP SCH (08:50)
[2017-02-19] MEDS: INSULIN LISPRO 100 UNIT/ML SC SCH (08:51)
[2017-02-19] MEDS: SUCRALFATE 1 GM/10 ML UDCUP PO SCH (11:08)
--- NOTE | 2017-02-19 11:36 | ASMTCMCOM ---
CM Note CM Note Notes: Pt requests hard copies of RXs, states can take them to [facility] and get filled. Will be less expensive for him. Date Signed: 02/19/2017 11:36 AM Electronically Signed By:Toma Gallo RN
--- NOTE | 2017-02-19 12:38 | ASDISCHSUM ---
Discharge Information Plan Status:Home with No Needs Medically Cleared to Leave: Discharge Date:02/19/2017 11:50 AM CM D/C Disposition:Home, Routine, Self-Care ADT D/C Disposition:Home, Routine, Self-Care Projected Discharge Date:02/19/2017 11:50 AM Transportation at D/C:Family Discharge Delay Reason: Follow-Up Date:02/19/2017 11:50 AM Discharge Slot: Final Diagnosis: Placement Information Patient Contact Information Contact Name:RONY Relationship: Address:[address]: City:[place] Alternate Phone: State/Zip Code:[place] [address] Email: Financial Information Financial Class:Self-Pay Primary Plan Desc:WE CARE Primary Plan Number:99 Secondary Plan Desc: Secondary Plan Number: Assessment Information [facility] Initial CM Assessment Living Arrangements What is your living Answers: With Spouse arrangement? Who do you live with? Type Of Residence What kind of residence do Answers: House you live in? Discharge Plan Comments Coordination Status Comments Notes: Pt is a 41 y/o man admitted for epigastric and LUQ abdominal pain. Pt will most likely d/c independent when medically stable w/ supportive . It is indicated that pt has 'we care' coverage. CM contacted [facility] to come evaluate for Medicaid eligibility. No therapies ordered at this time. CM available for changes. Plan: Independent Date Signed: 02/17/2017 09:44 AM Electronically Signed By:ASHVIN Vang [facility] CM Progress Note CM Note CM Note Notes: Pt requests hard copies of RXs, states can take them to [facility] and get filled. Will be less expensive for him. Date Signed: 02/19/2017 11:36 AM Electronically Signed By:Toma Gallo RN Intervention Information
--- NOTE | 2017-02-19 18:51 | GDS ---
[f rep st] DISCHARGE SUMMARY DISCHARGE DIAGNOSES: Include: 1. Acute pancreatitis secondary to autoimmune pancreatitis. 2. IgG4 sclerosis. 3. Gastroesophageal reflux. HISTORY OF PRESENT ILLNESS: This is a 41-year-old male with known autoimmune pancreatitis, who prese nts with epigastric pain. For details of patient's initial presentation, please see the History and Physical dated 02/17/2017. CONSULTATIVE SERVICES: Gastroenterology. PROCEDURES: 02/18/2017: Patient had MRCP which showed pancreatic duct stricture and pancreatic fibr osis. HOSPITAL COURSE: By issue: 1. Acute pancreatitis presumed secondary to autoimmune pancreatitis. Patient was treated medically with diet, rest, IV fluids, IV pain medication, and additionally started on IV steroids while n.p.o. He was slowly transitioned to an oral diet without complication and is being discharged on oral ster oids to be tapered in the outpatient setting by his primary spanish interpreter/translator and primary care provider at [facility]. The patient will be continued on his Imuran dosing of 150 mg daily, and again, ayanna hall with Dr. Bang outpatient for ongoing management of his autoimmune pancreatitis. Patient additi onally initiated on empiric proton pump inhibitor daily. 2. Diabetes. Patient had his metformin held while inpatient. This will be resumed in the outpatien t setting with normal oral intake. MEDICATIONS: At the time of disposition, please reference med rec printed on 02/19/2017. FOLLOWUP APPOINTMENTS: Include with primary care provider at [facility], in coordination with Sergei Bang, from rheumatology. Patient can also follow with Gastroenterology as needed and referred by his primary care provider. PENDING STUDIES: At the time of this dictation include immunoglobulin, checked by Gastroenterology. That will also be followed by Dr. Nguyen and Dr. Bang in the outpatient setting. I spent greater than 30 minutes in the planning and coordination of this discharge. /[id number]/MODL
== END 2017-02-19 11:50 | disposition home or self-care (01) | DRG 440 ==
LOC: F3E 02-17 01:06 → OBSVTOIN 02-17 16:32
PROVIDERS: ADMIT Family Medicine; ATTEND Hospitalist
DX: K85.90 Acute pancreatitis without necrosis or infection, unspecified (principal); E11.9 Type 2 diabetes mellitus without complications; K21.9 Gastro-esophageal reflux disease without esophagitis
CPT/HCPCS: 82787-90; 96374; A9585; J1170; J1815; J2405; J2920

== ENCOUNTER 2017-07-28 06:51 | Inpatient (IN) | payer MEDICAID, OTHER ==
--- NOTE | 2017-07-28 07:19 | EDPHY ---
HPI/HX/ROS/PE/MDM Narrative: CHIEF COMPLAINT: Abdominal pain HISTORY OF PRESENT ILLNESS: The patient is a Sierra Leonean-speaking 41 y/o male with a history of autoimmune pancreatitis and diabetes complaining of abdominal pain, onset 6:00AM, 1.5 hours ago. He reports feeling fine yesterday. He ate some chicken yesterday but avoided his normal problematic foods. This morning his pain abruptly started around 6:00AM. He took prednisone as prescribed but did not experience an improvement in pain. He denies vomiting, diarrhea, or any other associated symptoms. He denies consuming alcohol or smoking. He reports taking medications as prescribed. His last episode of pancreatitis was in January and his most recent CT was at that time. No fever, chills, chest pain, shortness of breath, palpitations, vomiting, diarrhea, urinary complaints, headache, lightheadedness. Information obtained from previous medical records including January 2017 visit for pancreatitis. Information from the patient obtained through phone medical interpreter. REVIEW OF SYSTEMS: Aside from elements discussed in the HPI, a comprehensive 10-point review of systems was reviewed and is negative. PAST MEDICAL HISTORY: Autoimmune pancreatitis, IgG4, diabetes SOCIAL HISTORY: [place] Leonean-speaking, daughter and at bedside, lives in [facility] VITAL SIGNS: Reviewed by me GENERAL: Well-developed, well-nourished, in no respiratory distress. Uncomfortable appearing. HEENT: Atraumatic. Eyes: No icterus, no injection. Mouth: moist mucous membranes. No erythema or lesions. Neck: supple with no adenopathy. LUNGS: Clear to auscultation bilaterally, no wheezes, rhonchi or rales. CARDIAC: Regular rate and rhythm, no rubs, murmurs or gallops. ABDOMEN: Tenderness in the right upper quadrant, epigastric, upper and mid left regions. Worst on the left upper quadrant. Soft, nondistended, bowel sounds normal. BACK: No CVA tenderness. Some midthoracic, left-sided back pain, at the same level as the abdominal pain. EXTREMITIES: No trauma. No edema. Range of motion is normal throughout. NEURO: Alert and oriented, grossly nonfocal. SKIN: Warm and dry, no rash. PSYCHIATRIC: Normal mentation, no agitation. ED Course: The patient presents with acute onset abdominal pain 1.5 hours ago. He has a history of autoimmune pancreatitis and reports this is the same as previous episodes. He took prednisone as directed to treat his autoimmune pancreatitis but did experience an improvement in symptoms. On exam, his is uncomfortable appearing with tenderness to palpation with the pain worst in the upper left quadrant and extending into the middle abdomen, epigastric, right upper quadrant , and midthoracic regions. Plan for CBC, basic metabolic panel, coag panel, liver function, lipase, and urinalysis for investigation of etiology of symptoms , 1L fluids, 1 mg hydromorphone, and 125 mg solumedrol for symptoms. Fluids admisistered. Additional pain meds given. Lipase 1972. 8:10 AM- I spoke with the hospitalist service regarding admission for this patient. Dr. Tovar will be the admitting physician and he will go to Med-surg for further care. The patient agrees to this course of action. MDM: Diff dx considered included pancreatitis, hepatitis, peptic ulcer disease, gastritis, esophagitis, perforated viscus. - Data Points Laboratory Results: Laboratory Results 07/28/17 07:20 07/28/17 07:20 07/28/17 07/28/17 07/28/17 07:20 07:20 07:20 WBC 6.79 10^3/uL 10^3/uL (3.80-9.50) RBC 5.22 10^6/uL 10^6/uL (4.40-6.38) Hgb 15.9 g/dL g/dL (13.7-17.5) Hct 46.1 % % (40.0-51.0) MCV 88.3 fL fL (81.5-99.8) MCH 30.5 pg pg (27.9-34.1) MCHC 34.5 g/dL g/dL (32.4-36.7) RDW 12.2 % % (11.5-15.2) Plt Count 236 10^3/uL 10^3/uL (150-400) MPV 10.3 fL fL (8.7-11.7) Neut % (Auto) 40.1 % % (39.3-74.2) Lymph % (Auto) 47.3 % H % (15.0-45.0) Villalba % (Auto) 8.8 % % (4.5-13.0) Eos % (Auto) 2.7 % % (0.6-7.6) Baso % (Auto) 0.4 % % (0.3-1.7) Nucleat RBC Rel Count 0.0 % % (0.0-0.2) Absolute Neuts (auto) 2.72 10^3/uL 10^3/uL (1.70-6.50) Absolute Lymphs (auto) 3.21 10^3/uL H 10^3/uL (1.00-3.00) Absolute Monos (auto) 0.60 10^3/uL 10^3/uL (0.30-0.80) Absolute Eos (auto) 0.18 10^3/uL 10^3/uL (0.03-0.40) Absolute Basos (auto) 0.03 10^3/uL 10^3/uL (0.02-0.10) Absolute Nucleated RBC 0.00 10^3/uL 10^3/uL (0-0.01) Immature Gran % 0.7 % % (0.0-1.1) Immature Gran # 0.05 10^3/uL 10^3/uL (0.00-0.10) PT 13.0 SEC SEC (12.0-15.0) INR 0.96 (0.83-1.16) APTT 21.8 SEC L SEC (23.0-38.0) Sodium 143 mEq/L mEq/L (135-145) Potassium 4.4 mEq/L mEq/L (3.3-5.0) Chloride 107 mEq/L mEq/L (97-110) Carbon Dioxide 23 mEq/l mEq/l (22-31) Anion Gap 13 mEq/L mEq/L (8-16) BUN 20 mg/dL mg/dL (7-23) Creatinine 0.7 mg/dL mg/dL (0.7-1.3) Estimated GFR > 60 Glucose 241 mg/dL H mg/dL (70-100) Calcium 9.1 mg/dL mg/dL (8.5-10.4) Total Bilirubin 0.6 mg/dL mg/dL (0.1-1.4) Conjugated Bilirubin 0.3 mg/dL mg/dL (0.0-0.5) Unconjugated Bilirubin 0.3 mg/dL mg/dL (0.0-1.1) AST 16 IU/L L IU/L (17-59) ALT 36 IU/L IU/L (21-72) Alkaline Phosphatase 146 IU/L H IU/L (38-126) Total Protein 6.8 g/dL g/dL (6.3-8.2) Albumin 3.9 g/dL g/dL (3.5-5.0) Lipase 1972 IU/L H IU/L (23-300) Medications Given: Discontinued Medications Hydromorphone HCl (Dilaudid) 1 mg IVP EDNOW ONE Stop: 07/28/17 07:28 Last Admin: 07/28/17 07:43 Dose: 1 mg Sodium Chloride (Ns) 1,000 mls @ 0 mls/hr IV EDNOW ONE; Wide Open PRN Reason: Protocol Stop: 07/28/17 07:28 Last Admin: 07/28/17 07:43 Dose: 1,000 mls Methylprednisolone Sodium Succinate (Solu-Medrol) 125 mg IVP EDNOW ONE Stop: 07/28/17 08:05 Last Admin: 07/28/17 08:10 Dose: 125 mg General Time Seen by Provider: 07/28/17 07:03 Initial Vital Signs: Initial Vital Signs Temperature (C) 36.3 C 07/28/17 06:54 Heart Rate 66 07/28/17 06:54 Respiratory Rate 20 07/28/17 06:54 Blood Pressure 124/77 H 07/28/17 06:54 O2 Sat (%) 95 07/28/17 06:54 O2 Delivery Mode Room Air Allergies/Adverse Reactions: No Known Allergies Allergy (Unverified 07/28/17 06:53) Home Medications: Medication Instructions Recorded metFORMIN HCL [Glucophage 1000 mg] 1,000 mg PO BID 02/17/17 Multivitamins [Multivitamin (*)] 1 each PO DAILY 07/28/17 Mycophenolate Mofetil [Cellcept] 500 mg PO BID 07/28/17 predniSONE [Prednisone] 60 mg PO DAILY #120 tablet 07/29/17 Departure - Departure Disposition: [facility] Clinical Impression: Autoimmune pancreatitis Condition: Fair Report Scribed for: Kayli Rodriguez Report Scribed by: Aliza Gomez Date of Report: 07/28/17 Time of Report: 08:41 Physician Review and Approval Statement: Portions of this note were transcribed by a medical and health services manager. I personally performed a history, physical exam, medical decision making, and confirmed accuracy of information the transcribed note.
[2017-07-28] MEDS ORDERED: HYDROmorphONE/DILAUDID 2 MG/ML INJ IVP ONE (07:27)
[2017-07-28] MEDS ORDERED: NS 1,000 ML IV ONE (07:27)
[2017-07-28] MEDS ORDERED: ONDANSETRON 4 MG/2 ML VIAL ONE (07:34)
[2017-07-28] MEDS ORDERED: HYDROmorphONE/DILAUDID 1 MG/ML INJ ONE (07:35)
[2017-07-28 07:36] LABS: PLATELET COUNT 236 10^3/uL (150-400)
[2017-07-28 07:44] LABS: INR 0.96 (0.83-1.16)
[2017-07-28] MEDS ORDERED: methylPREDNISolone SOD SUCC 125 MG/2 ML VIAL IVP ONE (08:04)
[2017-07-28] MEDS ORDERED: ACETAMINOPHEN 325 MG TAB PO PRN (08:27)
[2017-07-28] MEDS ORDERED: ONDANSETRON 4 MG/2 ML VIAL IVP PRN (08:27)
[2017-07-28] MEDS ORDERED: ONDANSETRON DISINTEGRATING 4 MG TAB PO PRN (08:27)
[2017-07-28] MEDS ORDERED: HYDROmorphONE/DILAUDID 1 MG/ML INJ IVP ONE (09:17)
[2017-07-28] MEDS: ENOXAPARIN 40 MG/0.4 ML SYR SC SCH (10:45)
[2017-07-28] MEDS: NS 1,000 ML IV SCH ×2 (10:46→21:51)
[2017-07-28] MEDS: HYDROmorphONE/DILAUDID 1 MG/ML INJ IVP PRN ×3 (10:46→15:53)
--- NOTE | 2017-07-28 11:25 | GCON ---
[f rep st] CONSULTATION DATE OF CONSULTATION: 07/28/2017 REFERRING PHYSICIAN: Jessica Tovar MD CHIEF COMPLAINT: Abdominal pain. HISTORY OF PRESENT ILLNESS: I am asked to see this patient consultation by Dr. Tovar for chief com plaint of abdominal pain. Patient is a 41-year-old with significant medical history for autoimmune p ancreatitis. This is at least his third admission for the same issue in the past year. He is follow ed by Dr. Bang, rheumatology, on immune modulators. Previously, he has responded to prednisone. Las t admission was in January. At that time, he had an MRCP that showed fibrotic pancreas, sausage sha ped pancreas, and possible stricture in the neck of the pancreas, but he responded well to prednisone . Initially, he was on Imuran, but he is now on CellCept has not been on prednisone, able to taper o ff, and had done well until yesterday, developed abdominal pain very similar to prior episodes radiat ing to his back. No nausea or vomiting. He is not passing any stools as of today, but really does n ot feel distended. The patient also has diabetes and high triglycerides. Patient had an upper endos copy on prior admission in June 2016, that showed mild gastritis at that time. Patient is Tunisian-speaking only and history is obtained from the chart and per line tender. ALLERGIES: No known allergies. HOME MEDICATIONS: Multivitamins, metformin, CellCept. PAST MEDICAL HISTORY: Notable for autoimmune pancreatitis, IgG4 with IgG4 related sclerosing disease , diabetes, hyperlipidemia, gastritis. SOCIAL HISTORY: Patient denies alcohol use. FAMILY HISTORY: Negative for colon cancer. REVIEW OF SYSTEMS: I performed a complete review of systems, which is negative, except for the perti nent positives and negatives noted above in the HPI. PHYSICAL EXAMINATION: VITAL SIGNS: He is currently afebrile at 37 degrees, BP 108/66, pulse 69. GE NERAL: He is alert and oriented, in no obvious distress. HEENT: Eyes: No scleral icterus. ENT: No oral lesions. CARDIOVASCULAR: Regular rhythm. CHEST: Clear to auscultation. ABDOMEN: Nondist ended, soft, but tender in the epigastric to left epigastric area. NEUROLOGIC: Grossly nonfocal. S KIN: No lesions. LABORATORY DATA: White count is 6.9, hematocrit 46.1, platelets 236. Coags within normal limits. C hemistry normal BUN, creatinine, normal LFTs, except for alkaline phosphatase slightly elevated at 14 6. Glucose is 249. Lipase elevated at 1972. Triglycerides were not checked this admission. ASSESSMENT: Pancreatitis. Patient holds a diagnosis of IgG4 autoimmune pancreatitis, has previously responded to prednisone and immune modulators. He is now on CellCept. I suspect he is having a fla re of his autoimmune pancreatitis; however, other considerations would include triglyceride mediated pancreatitis as he does have a history of elevated triglycerides. Previously, he has responded well to steroids. PLAN: 1. Recommend n.p.o. and IV fluid hydration. 2. Agree with Solu-Medrol. 3. We will monitor his clinical response. If he does not respond well in the next 24-48 hours, woul d consider repeat MRCP to assess for progression of pancreatic strictures. 4. We will check triglyceride levels. 5. If he does respond to steroids, will switch over to prednisone per taper and to follow up with ut s line assembler aircraft to monitor and adjust his immune modulator therapy. Thank you for this consult. /[id number]/MODL
[2017-07-28] MEDS: methylPREDNISolone SOD SUCC 125 MG/2 ML VIAL IVP SCH ×3 (11:54→23:36)
--- NOTE | 2017-07-28 14:41 | GHP ---
[f rep st] HISTORY AND PHYSICAL DATE OF ADMISSION: 07/28/2017 CHIEF COMPLAINT: Abdominal pain. HISTORY OF PRESENT ILLNESS: A 41-year-old male with a known history of autoimmune pancreatitis, who reports medication compliance with his Imuran, who reports being in his normal state of health the da y prior to presentation, tolerating p.o. intake without nausea or abdominal discomfort. The patient awoke at 6:00 this morning with severe epigastric and left-sided abdominal discomfort radiating up in to his chest, associated with nausea and some dizziness. Patient felt it was quite similar to his episode of pancreatitis, therefore, presented to the emergency department for evaluation. The pat whit denies any preceding fevers or chills. He has not eaten food since the initiation of pain knowi ng that historically it has made it worse. Denies any nausea or vomiting in the home. Denies any di arrhea. Denies dysuria, hematuria. Denies myalgias, arthralgias, or any new rashes. PAST MEDICAL HISTORY: 1. Autoimmune pancreatitis. 2. Diabetes type 2. 3. IgG4-related sclerosing disease. 4. Hyperlipidemia. 5. History of gastritis/duodenitis. SOCIAL HISTORY: Negative for tobacco, alcohol or illicit drugs. FAMILY HISTORY: Negative for pancreatitis. ADVANCED DIRECTIVES: Patient is full COR, full tube. A 10-point review of systems is negative with the exception of that reported in the HPI. PHYSICAL EXAMINATION: VITAL SIGNS: Blood pressure 112/57, heart rate 67, respiratory rate 18, satur ating 94% on room air, 36.6. GENERAL: This is a healthy-appearing young male lying flat in bed. HE ENT: Notable for dry mucous membranes. Eye exam is negative for any icterus. CARDIAC: Patient is regular rate and rhythm. PULMONARY: Clear to auscultation bilaterally. GASTROINTESTINAL: Positive bowel sounds. ABDOMEN: The patient has soft abdomen, is tender to palpation in the epigastrium and left upper quadrant. No rebound or guarding. MUSCULOSKELETAL: Negative for any lower extremity he ma. SKIN: Negative for any rashes. NEUROLOGIC: Patient is alert and oriented x3. PSYCHIATRIC: He is pleasant and cooperative on interview and examination. DATA: White count 6.7, hematocrit 46.1, platelets of 236, creatinine 0.7, blood glucose 241. Sodium 143, AST 16, ALT 36, alkaline phosphatase 146, lipase 1972. 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 Radiology comments on no masses. Mild pancreatic fibrosis is noted. ASSESSMENT AND PLAN: This is a 41-year-old male with known autoimmune pancreatitis presenting with r ecurrent abdominal discomfort. 1. Acute pancreatitis. Suspect this is related to his underlying autoimmune disorder. We will init ially treat with IV Solu-Medrol. I have consulted Gastroenterology for additional recommendations sp ecific to the treatment of his underlying autoimmune disorder. I made the patient n.p.o. and we will fluid resuscitate. He has IV pain medications for control. 2. Hyperlipidemia. We will hold the patient's medications at this time. 3. Diabetes type 2. We will hold the patient's metformin. Can cover with sliding scale insulin as needed. Prophylaxis with Lovenox. Diet n.p.o. with IV fluids. DISPOSITION: I expect greater than 2 midnights. The patient is presenting with acute pancreatitis, unable to tolerate food, requiring IV pain medications and fluid resuscitation. I discussed the case with GI, Dr. Wu. She will consult today with additional recs for treatment of the patient's acute presentation. /[id number]/MODL
--- NOTE | 2017-07-28 17:34 | PDMN ---
Medical Necessity Medical necessity: Pt meets INPT criteria per and [facility] M-250 Pancreatitis ( acute pancreatitis suspect r/t underlying autoimmune disorder, lipase 1972, severe abd discomfort, unable to tolerate food; requiring IVF, IV pain meds, IV Solumedrol; est. LOS >2 MN).
[2017-07-28] MEDS: MYCOPHENOLATE MOFETIL 250 MG CAP PO SCH (22:07)
[2017-07-29 05:02] LABS: PLATELET COUNT 191 10^3/uL (150-400)
[2017-07-29] MEDS: methylPREDNISolone SOD SUCC 125 MG/2 ML VIAL IVP SCH ×2 (05:55→13:26)
[2017-07-29] MEDS: NS 1,000 ML IV SCH (08:09)
[2017-07-29] MEDS: MYCOPHENOLATE MOFETIL 250 MG CAP PO SCH (08:11)
[2017-07-29] MEDS: ENOXAPARIN 40 MG/0.4 ML SYR SC SCH (08:11)
--- NOTE | 2017-07-29 15:06 | ASMTCMCOM ---
CM Note CM Note Notes: Pt admitted with acute pancreatitis, anticipate he will dc home w/support of when medically stable, no therapies ordered. CM available for any changes. DC Plan: Independent Date Signed: 07/29/2017 03:05 PM Electronically Signed By:Toma Gallo RN
[2017-07-29 15:26] VITALS: BP 105/62
--- NOTE | 2017-07-29 17:52 | GDS ---
[f rep st] DISCHARGE SUMMARY DISCHARGE DIAGNOSES: Include: 1. Acute pancreatitis. 2. History of autoimmune pancreatitis. 3. Diabetes. HISTORY OF PRESENT ILLNESS: This is a 41-year-old male with a history of autoimmune pancreatitis, pr esenting with acute abdominal discomfort. For details of patient's initial presentation, please see the history and physical dated 07/28/2017. CONSULTATIVE SERVICES: Gastroenterology. PROCEDURES: None. HOSPITAL COURSE: Acute pancreatitis. Patient was admitted, initiated on IV steroids with prompt res ponse in his pain. Patient was rapidly advanced on oral intake to regular diet on the day of disposi tion. Per gastrointestinal recommendations, he will be discharged on high dose prednisone on a very slow taper to follow in the next 2-3 weeks with his outpatient sas sql developer, Dr. Bang, who will con tinue the taper and guidance related to his steroid therapy. Of note, if the patient has another hos pitalization related to his pancreatitis, GI recommends that he have ERCP performed at that time. MEDICATIONS AT TIME OF DISPOSITION: Please reference the medication reconciliation printed on 2017. FOLLOWUP APPOINTMENTS: Include with Dr. Bang in the outpatient setting. TIME SPENT: I spent greater than 30 minutes in the planning and coordination of this discharge. /[id number]/MODL
== END 2017-07-29 16:34 | disposition home or self-care (01) | DRG 440 ==
LOC: OBSVTOIN 08:08 → F3E 10:18
PROVIDERS: ADMIT Hospitalist; ATTEND Hospitalist
DX: K85.90 Acute pancreatitis without necrosis or infection, unspecified (principal); E86.9 Volume depletion, unspecified; E11.9 Type 2 diabetes mellitus without complications; K86.1 Other chronic pancreatitis; E78.5 Hyperlipidemia, unspecified; Z79.84 Long term (current) use of oral hypoglycemic drugs
CPT/HCPCS: J1170; J1650; J2405; J2930

== ENCOUNTER 2018-03-14 22:06 | Emergency (ER) | payer MEDICAID, OTHER ==
--- NOTE | 2018-03-14 22:31 | EDPHY ---
H & P Stated Complaint: rash all over since thu Source: Patient, Mass Spec Exam Limitations: Language barrier (Argentine) - Personal History Current Tetanus/Diphtheria Vaccine: Unsure Current Tetanus Diphtheria and Acellular Pertussis (TDAP): Unsure Tetanus Vaccine Date: LESS THAN 10 YEARS - Medical/Surgical History Hx Asthma: No Hx Chronic Respiratory Disease: No Hx Diabetes: Yes Hx Cardiac Disease: No Hx Renal Disease: No Hx Cirrhosis: No Hx Alcoholism: No Hx HIV/AIDS: No Hx Splenectomy or Spleen Trauma: No Other PMH: R arm lymph node biopsy 09/2013 neg, NIDDM, IGg4 disease, autoimmune pancreatitis - Social History Smoking Status: Never smoked Time Seen by Provider: 03/14/18 22:30 HPI/ROS: HPI: This is a 42-year-old male who presents with Chief Complaint: rash all over since thu Location: Body Quality: Rash Duration: 2 days Signs and Symptoms: no fever, no nausea, no vomiting, no diarrhea, no urinary symptoms, no chest pain, no shortness of breath, no wheezing, no cough, no sore throat, no neck stiffness, no joint pain, no swollen glands, no ear pain Timing: Worsening Severity: Moderate Context: Patient has a history non-insulin diabetes mellitus, autoimmune pancreatitis presents with sudden onset of his left flank of a rash that was hives like in appearance that has since spread to his entire torso arms and legs. He reports that is extremely itchy. He took Benadryl yesterday with transient relief. He denies any upper respiratory symptoms or fever. Denies any sore throat. Patient does not believe that he has had any exposure to new lotions, detergents, perfumes. 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 Modifying Factors: Benadryl Comment: ROS: A comprehensive 10 system review of systems is otherwise negative aside from elements mentioned in the history of present illness. MEDICAL/SURGICAL/SOCIAL HISTORY: Medical/Surgical history: R arm lymph node biopsy 09/2013 neg, NIDDM, IGg4 disease, autoimmune pancreatitis Social history: Never smoked. . Has children. Family history noncontributory. CONSTITUTIONAL: Middle-aged male, nontoxic in appearance, awake and alert, no obvious distress HEENT: Atraumatic and normocephalic, PERRL, EOMI. Nares patent; no rhinorrhea; no nasal mucosal edema. Tympanic membranes clear. Oropharynx clear, no exudate and moist pink mucosa. Airway patent. No lymphadenopathy. No meningismus. Cardiovascular: Normal S1/S2, tachycardia, regular rhythm, without murmur rub or gallop. PULMONARY/CHEST: Symmetrical and nontender. Clear to auscultation bilaterally. Good air movement. No accessory muscle usage. ABDOMEN: Soft, nondistended, nontender, no rebound, no guarding, no peritoneal signs, no masses or organomegaly. No CVAT. EXTREMITIES: 2/2 pulses, strength 5/5, no deformities, no clubbing, no cyanosis or edema. NEUROLOGICAL: no focal neuro deficits. GCS 15. SKIN: Warm and dry, scattered urticaria hives noted on torso upper and lower extremities; blanches with palpation. No vesicles. No petechiae. Good capillary refill. (Norma Jean Baptiste) Constitutional: Initial Vital Signs Temperature (C) 36.3 C 03/14/18 22:08 Heart Rate 102 H 03/14/18 22:08 Respiratory Rate 16 03/14/18 22:08 Blood Pressure 123/82 H 03/14/18 22:08 O2 Sat (%) 95 03/14/18 22:08 O2 Delivery Mode Room Air Allergies/Adverse Reactions: No Known Allergies Allergy (Verified 03/14/18 22:14) Home Medications: Medication Instructions Recorded Famotidine [Pepcid 20 MG (*)] 20 mg PO BID 3 Days tab 03/14/18 Insulin Syringe 03/14/18 Metformin HCl 03/14/18 Mycophenolate Mofetil 03/14/18 predniSONE 50 mg PO DAILY 5 Days tablet 03/14/18 Medical Decision Making ED Course/Re-evaluation: Vital signs reviewed and show mild tachycardia. No signs of angioedema/airway compromise/anaphylaxis Patient given IV Decadron 10 mg, IV Benadryl 50 mg, IV Pepcid 40 mg 2330: Reassessed patient who shows 75% improvement in rash and no pruritus. Patient given a prescription for prednisone x5 days, Pepcid x3 days with Benadryl p.r.n. This patient was seen under the supervision of my secondary supervising physician. Discussed this patient with Dr. Lima who did not see the patient. (Norma Jean Baptiste) PHYSICIAN DOCUMENTATION: The patient was evaluated and managed by the Physician Alteration Tailor. My co- signature indicates that I have reviewed this chart and I agree with the findings and plan of care as documented. I am the secondary supervising physician. (Renee Lima) Differential Diagnosis: Differential diagnosis includes but is not limited to urticaria, scarlet fever, shingles, 5th disease, pityriasis rosea (Ita,Norma) - Data Points Medications Given: Discontinued Medications Dexamethasone (Decadron Injection) 10 mg IVP EDNOW ONE Stop: 03/14/18 22:38 Last Admin: 03/14/18 22:44 Dose: 10 mg Diphenhydramine HCl (Benadryl Injection) 50 mg IVP EDNOW ONE Stop: 03/14/18 22:37 Last Admin: 03/14/18 22:44 Dose: 50 mg Famotidine (Pepcid) 40 mg PO EDNOW ONE Stop: 03/14/18 22:37 Last Admin: 03/14/18 22:50 Dose: 40 mg Departure - Departure Disposition: Home, Routine, Self-Care Clinical Impression: Urticaria Condition: Good Instructions: Urticaria (ED) Additional Instructions: Take steroids daily. Take Benadryl 50 mg every 4-6 hours as needed for itching/allergic reaction. Take Pepcid twice daily x 3 days. Referrals: [facility],. [Clinic] - 5-7 days, if not improved Prescriptions: Famotidine [Pepcid 20 MG (*)] 20 mg PO BID 3 Days tab predniSONE 50 mg PO DAILY 5 Days tablet
[2018-03-14] MEDS ORDERED: DEXAMETHASONE 4 MG/ML VIAL ONE (22:35)
[2018-03-14] MEDS ORDERED: FAMOTIDINE 20 MG TAB PO ONE (22:36)
[2018-03-14] MEDS ORDERED: FAMOTIDINE 20 MG/2 ML SDV ONE (22:37)
[2018-03-14] MEDS ORDERED: DEXAMETHASONE 10 MG/ML VIAL IVP ONE (22:37)
[2018-03-14] MEDS ORDERED: FAMOTIDINE 20 MG/NACL/50 ML BAG IV ONE (22:48)
[2018-03-14 23:52] VITALS: BP 117/81
== END 2018-03-14 23:49 | disposition home or self-care (01) ==
DX: L50.9 Urticaria, unspecified (principal); E11.9 Type 2 diabetes mellitus without complications
CPT/HCPCS: 96374; J1100; J1200

== ENCOUNTER 2018-04-22 03:58 | Observation (INO) | payer OTHER ==
[2018-04-22] MEDS ORDERED: ONDANSETRON 4 MG/2 ML VIAL IVP ONE (04:10)
[2018-04-22] MEDS ORDERED: NS 1,000 ML IV ONE (04:10)
--- NOTE | 2018-04-22 04:13 | EDPHY ---
H & P Stated Complaint: LLQ abd pain Time Seen by Provider: 04/22/18 04:05 HPI/ROS: Chief Complaint: Abdominal pain HPI: 42-year-old male with a history of autoimmune pancreatitis is presenting with left upper abdominal pain for the last 4 days. This is similar to his prior episodes of pancreatitis. He was seen at the clinic yesterday and started on hydrocodone but this is not helping his pain. Currently an 10/09. His last episode this severe was when he was admitted last June. No nausea or vomiting. No fevers or chills. He is currently on CellCept and has been compliant with medications. No diarrhea or constipation. ROS: 10 systems were reviewed and were negative except those elements noted in the HPI. PMH: Autoimmune pancreatitis, type 2 diabetes Social History: No smoking, no alcohol, no recreational drug use Family History: non-contributory Physical Exam: Gen: Awake, Alert, uncomfortable appearing HEENT: Nose: no rhinorrhea Eyes: PERRLA, EOMI Mouth: Moist mucosa Neck: Supple, no JVD Chest: nontender, lungs clear to auscultation Heart: S1, S2 normal, no murmur Abd: Soft, moderate left upper abdominal tenderness, no guarding Back: no CVA tenderness, no midline tenderness Ext: no edema, non-tender Skin: no rash Neuro: CN II-XII intact, Sensation grossly intact, Strength 5/5 in bilateral upper and lower extremities - Personal History Current Tetanus/Diphtheria Vaccine: Yes Current Tetanus Diphtheria and Acellular Pertussis (TDAP): Yes Tetanus Vaccine Date: LESS THAN 10 YEARS - Medical/Surgical History Hx Asthma: No Hx Chronic Respiratory Disease: No Hx Diabetes: Yes Hx Cardiac Disease: No Hx Renal Disease: No Hx Cirrhosis: No Hx Alcoholism: No Hx HIV/AIDS: No Hx Splenectomy or Spleen Trauma: No Other PMH: R arm lymph node biopsy 09/2013 neg, NIDDM, IGg4 disease, autoimmune pancreatitis - Social History Smoking Status: Never smoked Constitutional: Initial Vital Signs Temperature (C) 36.8 C 04/22/18 04:00 Heart Rate 89 04/22/18 04:00 Respiratory Rate 16 04/22/18 04:00 Blood Pressure 106/75 04/22/18 04:00 O2 Sat (%) 95 04/22/18 04:00 O2 Delivery Mode Room Air Allergies/Adverse Reactions: No Known Allergies Allergy (Verified 04/22/18 04:02) Home Medications: Medication Instructions Recorded Famotidine [Pepcid 20 MG (*)] 20 mg PO BID 3 Days tab 03/14/18 Insulin Syringe 03/14/18 Metformin HCl 03/14/18 Mycophenolate Mofetil 03/14/18 Banophen Anti-Itch 2% Cream 04/22/18 [place] 5-325 Tablet 04/22/18 Medical Decision Making ED Course/Re-evaluation: 42-year-old male with autoimmune pancreatitis presenting with a flare. He is failing outpatient therapy. I have reviewed his discharge records from the past. He has always responded well to steroids. There was no in his last discharge that GI recommended ERCP the next time he has hospitalization. I have discussed with Dr. Schultz, hospitalist. She will admit to her service for further care. - Data Points Laboratory Results: Laboratory Results 04/22/18 04:15 04/22/18 04:15 WBC 6.90 10^3/uL 10^3/uL (3.80-9.50) RBC 5.38 10^6/uL 10^6/uL (4.40-6.38) Hgb 16.6 g/dL g/dL (13.7-17.5) Hct 46.9 % % (40.0-51.0) MCV 87.2 fL fL (81.5-99.8) MCH 30.9 pg pg (27.9-34.1) MCHC 35.4 g/dL g/dL (32.4-36.7) RDW 12.2 % % (11.5-15.2) Plt Count 187 10^3/uL 10^3/uL (150-400) MPV 10.7 fL fL (8.7-11.7) Neut % (Auto) 65.3 % % (39.3-74.2) Lymph % (Auto) 20.1 % % (15.0-45.0) [place] % (Auto) 11.3 % % (4.5-13.0) Eos % (Auto) 2.5 % % (0.6-7.6) Baso % (Auto) 0.4 % % (0.3-1.7) Nucleat RBC Rel Count 0.0 % % (0.0-0.2) Absolute Neuts (auto) 4.50 10^3/uL 10^3/uL (1.70-6.50) Absolute Lymphs (auto) 1.39 10^3/uL 10^3/uL (1.00-3.00) Absolute Monos (auto) 0.78 10^3/uL 10^3/uL (0.30-0.80) Absolute Eos (auto) 0.17 10^3/uL 10^3/uL (0.03-0.40) Absolute Basos (auto) 0.03 10^3/uL 10^3/uL (0.02-0.10) Absolute Nucleated RBC 0.00 10^3/uL 10^3/uL (0-0.01) Immature Gran % 0.4 % % (0.0-1.1) Immature Gran # 0.03 10^3/uL 10^3/uL (0.00-0.10) Medications Given: Discontinued Medications Sodium Chloride (Ns) 1,000 mls @ 0 mls/hr IV ONCE ONE; Wide Open PRN Reason: Protocol Stop: 04/22/18 04:11 Last Admin: 04/22/18 04:21 Dose: 1,000 mls Methylprednisolone Sodium Succinate (Solu-Medrol) 125 mg IVP EDNOW ONE Stop: 04/22/18 04:19 Last Admin: 04/22/18 04:25 Dose: 125 mg Morphine Sulfate (Morphine) 4 mg IVP ONCE ONE Stop: 04/22/18 04:11 Last Admin: 04/22/18 04:22 Dose: 4 mg Ondansetron HCl (Zofran) 4 mg IVP EDNOW ONE Stop: 04/22/18 04:11 Last Admin: 04/22/18 04:22 Dose: 4 mg Departure - Departure Disposition: [facility] Clinical Impression: Autoimmune pancreatitis Condition: Fair Referrals: Fartun Jacob PA [Primary Care Provider] - As per Instructions
[2018-04-22] MEDS ORDERED: methylPREDNISolone SOD SUCC 125 MG/2 ML VIAL IVP ONE (04:18)
[2018-04-22 04:25] LABS: PLATELET COUNT 187 10^3/uL (150-400)
[2018-04-22] MEDS ORDERED: ONDANSETRON 4 MG/2 ML VIAL IVP PRN (05:17)
[2018-04-22] MEDS ORDERED: ACETAMINOPHEN 325 MG TAB PO PRN (05:17)
[2018-04-22] MEDS ORDERED: ONDANSETRON DISINTEGRATING 4 MG TAB PO PRN (05:17)
[2018-04-22] MEDS ORDERED: LORazepam 2 MG/ML INJ IVP PRN (05:17)
[2018-04-22] MEDS ORDERED: ACETAMINOPHEN 650 MG SUPP PR PRN (05:17)
[2018-04-22] MEDS ORDERED: HYDROmorphONE/DILAUDID 1 MG/ML INJ IVP PRN (05:17)
[2018-04-22] MEDS ORDERED: NS 1,000 ML IV SCH (05:30)
[2018-04-22] MEDS ORDERED: D50W 25 GM/50 ML SYR IVP PRN (05:55)
--- NOTE | 2018-04-22 06:07 | PDGENHP ---
History and Physical - Chief Complaint Left upper quadrant abdominal pain - History of Present Illness Source-patient is primarily [place]ian-speaking only. He does understand some [place]ian. Depression of the review was conducted by me in [place]ian. Remainder is obtained with assist of tele-site interpreter. 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 Patient denies any associated nausea, vomiting, fevers, chills, diarrhea, chest pain, shortness of breath. He reports his pain is currently improved to 4/10 following administration of morphine, Solu-Medrol. History Information - Allergies/Home Medication List Allergies/Adverse Reactions: No Known Allergies Allergy (Verified 04/22/18 04:02) Home Medications: Insulin Syringe 03/14/18 [Last Taken Unknown] Metformin HCl 03/14/18 [Last Taken Unknown] Mycophenolate Mofetil 03/14/18 [Last Taken Unknown] Banophen Anti-Itch 2% Cream 04/22/18 [Last Taken Unknown] [place] 5-325 Tablet 04/22/18 [Last Taken Unknown] I have personally reviewed and updated: family history, medical history, social history, surgical history - Past Medical History Additional medical history: IGG4 related sclerosing disease. autoimmune pancreatitis. DM2. Hyperlipidemia. hx gastritis/duodenitis - Surgical History Additional surgical history: lymph node biopsy. egd + bx - Family History Additional family history: denies any GI disorders in family. - Social History Smoking Status: Never smoked Additional social history: Patient lives here with and children. COR - FULL. Review of Systems Review of Systems: ROS: 10pt was reviewed & negative except for what was stated in HPI & below Physical Exam Physical Exam: Selected Entries 04/22/18 04:00 Blood Pressure Automatic Method Heart Rate 89 Respiratory 16 Rate O2 Sat (%) 95 Temperature (C) 36.8 C Blood Pressure 106/75 Mean Arterial 85 Pressure (MAP) O2 Delivery Room Air Mode Temperature Oral Source Temp Pulse Resp BP Pulse Ox 36.8 C 69 16 112/84 H 91 L 04/22/18 04:00 04/22/18 05:21 04/22/18 05:21 04/22/18 05:21 04/22/18 05:21 Constitutional: no apparent distress, appears nourished, uncomfortable (With movement the and exam.), other (NAD. Patient is lying quietly on gurney. He intermittently rubs left upper abdomen. Appears fatigued. and daughter at bedside.) Eyes: PERRL (Decreased reactivity to light bilaterally but symmetric.), anicteric sclera, EOMI, No scleral injection Ears, Nose, Mouth, Throat: dry mucous membranes, other (No nasal discharge.), No poor dentition Cardiovascular: regular rate and rhythym, no murmur, rub, or gallop, pulses symmetric bilaterally, No edema Peripheral Pulses: 2+: dorsalis-pedis (R), dorsalis-pedis (L) Respiratory: no respiratory distress, no rales or rhonchi, clear to auscultation , No inspiratory crackles Gastrointestinal: normoactive bowel sounds, no palpable masses, tenderness ( Left upper quadrant.), No hepatosplenomegally, No distension Genitourinary: no bladder tenderness, No banks in urethra Skin: warm, normal color, no rashes or abrasions Musculoskeletal: full muscle strength, other (Patient sits up independently. Moves all extremities. Strength grossly normal.) Neurologic: AAOx3, sensation intact bilaterally, other (Grossly nonfocal exam.) , No facial droop Psychiatric: interacting appropriately, not anxious, not encephalopathic, thought process linear Lab Data & Imaging Review 04/22/18 04:15 04/22/18 04:15 WBC 6.90 10^3/uL (3.80-9.50) 04/22/18 04:15 RBC 5.38 10^6/uL (4.40-6.38) 04/22/18 04:15 Hgb 16.6 g/dL (13.7-17.5) 04/22/18 04:15 Hct 46.9 % (40.0-51.0) 04/22/18 04:15 MCV 87.2 fL (81.5-99.8) 04/22/18 04:15 MCH 30.9 pg (27.9-34.1) 04/22/18 04:15 MCHC 35.4 g/dL (32.4-36.7) 04/22/18 04:15 RDW 12.2 % (11.5-15.2) 04/22/18 04:15 Plt Count 187 10^3/uL (150-400) 04/22/18 04:15 MPV 10.7 fL (8.7-11.7) 04/22/18 04:15 Neut % (Auto) 65.3 % (39.3-74.2) 04/22/18 04:15 Lymph % (Auto) 20.1 % (15.0-45.0) 04/22/18 04:15 [place] % (Auto) 11.3 % (4.5-13.0) 04/22/18 04:15 Eos % (Auto) 2.5 % (0.6-7.6) 04/22/18 04:15 Baso % (Auto) 0.4 % (0.3-1.7) 04/22/18 04:15 Nucleat RBC Rel Count 0.0 % (0.0-0.2) 04/22/18 04:15 Absolute Neuts (auto) 4.50 10^3/uL (1.70-6.50) 04/22/18 04:15 Absolute Lymphs (auto) 1.39 10^3/uL (1.00-3.00) 04/22/18 04:15 Absolute Monos (auto) 0.78 10^3/uL (0.30-0.80) 04/22/18 04:15 Absolute Eos (auto) 0.17 10^3/uL (0.03-0.40) 04/22/18 04:15 Absolute Basos (auto) 0.03 10^3/uL (0.02-0.10) 04/22/18 04:15 Absolute Nucleated RBC 0.00 10^3/uL (0-0.01) 04/22/18 04:15 Immature Gran % 0.4 % (0.0-1.1) 04/22/18 04:15 Immature Gran # 0.03 10^3/uL (0.00-0.10) 04/22/18 04:15 Sodium 136 mEq/L (135-145) 04/22/18 04:15 Potassium 4.0 mEq/L (3.5-5.2) 04/22/18 04:15 Chloride 107 mEq/L (97-110) 04/22/18 04:15 Carbon Dioxide 24 mEq/l (22-31) 04/22/18 04:15 Anion Gap 5 mEq/L (6-14) L 04/22/18 04:15 BUN 8 mg/dL (7-23) 04/22/18 04:15 Creatinine 0.6 mg/dL (0.7-1.3) L 04/22/18 04:15 Estimated GFR > 60 04/22/18 04:15 Glucose 256 mg/dL (70-100) H 04/22/18 04:15 Calcium 9.2 mg/dL (8.5-10.4) 04/22/18 04:15 Total Bilirubin 0.5 mg/dL (0.1-1.4) 04/22/18 04:15 AST 18 IU/L (17-59) 04/22/18 04:15 ALT 53 IU/L (21-72) 04/22/18 04:15 Alkaline Phosphatase 141 IU/L (38-126) H 04/22/18 04:15 Total Protein 6.9 g/dL (6.3-8.2) 04/22/18 04:15 Albumin 4.0 g/dL (3.5-5.0) 04/22/18 04:15 Triglycerides 151 mg/dL (40-150) H 04/22/18 04:15 Lipase 343 IU/L (23-300) H 04/22/18 04:15 Assessment & Plan Assessment: This is a pleasant 42-year-old gentleman with a past medical history significant for autoimmune hepatitis, 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 #LUQ abdominal pain - differential diagnosis including pancreatitis, gastritis, gastric ulcer. Patient pain is improved status post morphine emergency department. He has received 125 mg Solu-Medrol. Will also administer Protonix. Patient will be made NPO. GI consultation later this morning per day team. Will check triglyceride. P.r.nTali Wahl. #autoimmune pancreatitis #IGg4 sclerosing disease #HLD #DM II - low-dose sliding scale while NPO. FEN - IV fluids. Electrolytes adequate. NPO status. PPX-SCDs. Holding anticoagulation pending GI eval. Cor status-full This has patient be admitted observation status on the [facility] floor as tele overflow pending response to steroids and GI recommendations.
--- NOTE | 2018-04-22 13:42 | ASMTCMCOM ---
CM Note CM Note Notes: Pt is a 42 y/o man admitted for LUQ abdominal pain. Pt is french speaking only. Pts case discussed in tx rounds. Pt will most likely d/c independent when medically stable. No therapies ordered at this time. CM available for changes. Plan: Independent Date Signed: 04/22/2018 01:41 PM Electronically Signed By:ASHVIN Vang
[2018-04-22] MEDS: INSULIN REGULAR HUMAN 100 UNIT/ML UNIT SC SCH ×4 (13:56→22:20)
[2018-04-22] MEDS ORDERED: POLYETHYLENE GLYCOL 3350 17 GM PKT PO ONE (17:34)
--- NOTE | 2018-04-22 17:34 | PDCONSULT ---
Bone Drier Operator Note: [email or web address] p: f: REFERRING PHYSICIAN: I was asked to see the patient in consultation by Dr. Lei Salguero for a chief complaint of periumbilical abdominal pain. HISTORY OF PRESENT ILLNESS: Neptali Díaz is a 43-year-old male with a history of IgG for sclerosing disease initially diagnosed in 2014 when he had fever, mediastinal adenopathy, salivary gland enlargement and elevated IgG4 levels. He is followed by an outpatient manager card, Dr. Bang. Mr. Larkin also has a history of autoimmune pancreatitis and has been treated in the past with steroids. Mr. Larkin has felt well over the past year in regards to abdominal pain up until January 2018. In 2018 he started to have stabbing abdominal pain every day that was a 1/10 in intensity. Over the last week this pain has progressed to an 8/10 and he started to take hydrocodone/tylenol for the pain. The pain does not change with eating but is improved a lot with having a bowel movement and he feels like he is constipated. When he presented to the [facility] ER he was given 125 mg of IV Solu-Medrol and he feels like this has improved his pain though he continues to havel pain currently. Mr. Larkin has been seen by GI [facility] in consultation on several occasions including 07/06/2016, 02/17/2017, 07/28/2017. Imuran was changed to Cellcept as though Imuran can also induce pancreatitis PAST MEDICAL HISTORY: IgG for sclerosing disease, diabetes, hyperlipidemia, autoimmune pancreatitis PAST SURGICAL HISTORY: History of lymph node biopsy next field HOME MEDICATIONS: CellCept thousand milligrams by mouth twice a day, metformin thousand milligrams by mouth twice a day, Levemir 30 units subcu daily at bedtime, [place] 5/325 1 tab by mouth every 6 when necessary, cholecalciferol 1000 units by mouth daily INPATIENT MEDICATIONS: Tylenol 650 mg by mouth every 4 when necessary, Dilaudid 0.20.4 mg IV every 2 when necessary pain, Humulin sliding scale, Ativan 0.51 mg IVP when necessary, CellCept 1000 mg by mouth twice a day Zofran 4 mg by mouth/ IV every 4 when necessary ALLERGIES: NKDA FAMILY HISTORY: No family history of autoimmune disease SOCIAL HISTORY No Tobacco use No Alcohol use ROS I have performed a comprehensive review of systems, which is negative except for pertinent positives and/or pertinent negatives as noted above in the HPI Physical exam: Vitals 1727-based 37 Celsius HR 75 are are 18 BP 105 or 67 92% on room air CONSTITUTIONAL: alert, unwell appearing, in no distress MENTAL STATUS: alert, oriented to person, place and time PSYCH: mood appropriate for affect EYES: pupils equal and reactive extra ocular eye movements intact EARS: right and left ear normal NOSE: normal and patent, no erythema, discharge or polyps MOUTH: mucous membranes moist, pharynx normal without lesions, Mallampati I HEAD: normal NECK: supple, no significant adenopatchy CHEST: clear to auscultation, no wheezes, rales or rhonchi, symmetric air entry CARDIOVASCULAR: normal rate, regular rhythm, normal S1,S2, no murmurs, rubs, clicks or gallops GASTROINTESTINAL: soft, non tender, non distended, no masses or organomegaly NEUROLOGICAL: alert, oriented, normal speech, no focal findings or movement disorder noted. No asterixis. MUSCULOSKELETAL: no joint tenderness, deformity or swelling SKIN: normal coloration and turgor, no rashes, no suspicious skin lesions CURRENT DATA: LABS: CBC: WBC 6.9 a CBC 16 platelets 187 BMP: Sodium 136 potassium 4 BUN 8 creatinine 0.6 glucose 256 LFT: TB 0.5 a okay 141 AST 18 ALT 53 albumin 4 Lipase 343 for reference range 23-3000 IMAGING: no imaging this admission Date 02/17/2017 MRI of the abdomen and pelvis Pancreatic duct stricture and pancreatic neck without discernible pancreatic mass Mouth pancreatic fibrosis no peripancreatic inflammatory process normal liver and common bile duct, no evidence of biliary obstruction ENDOSCOPY: Date 07/04/2016 upper endoscopy normal esophagus, mild gastritis, duodenitis ASSESSMENT: Mr Trae Ribeiro is a 42-year-old male with 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 Overall he feels his symptoms have improved with a dose of Solu-Medrol that occurred in the ER. We discussed performing an MRI to further evaluate the pancreas. Additionally some of his pain could be constipation related to [place] use the past week as well. RECOMMENDATIONS: -Keep patient NPO for MRI/MRCP -Miralax 17 grams daily for bowel regimen while receiving opioids -Will decide on steroids or further management after review of imaging -Thank you for this consultation Sincerely, Bel Lainez MD [facility] n
[2018-04-22] MEDS: MYCOPHENOLATE MOFETIL 250 MG CAP PO SCH (18:45)
--- NOTE | 2018-04-22 21:37 | HOSPPROG ---
Hospitalist Progress Note Assessment/Plan: This is a pleasant 42-year-old gentleman with a past medical history significant for autoimmune pancreatitis, IgG4 on CellCept, dm 2, HLD who presents emergency department today with complaints of LUQ abdominal pain. LUQ abdominal pain - lipase only mildly elevated at 340 today, pain resolved with pain medications. vitals WNL. I discussed the case with line production cook gastroenterology who recommended MRI/MRCP and holding steroids until MRI obtained. #autoimmune pancreatitis- on cellcept. may be reason for ab pain. GI consulted. cont cellcept for now. #HLD-hold statin #DM II - low-dose sliding scale while NPO. FEN - IV fluids. Electrolytes adequate. NPO status. PPX-SCDs. Holding anticoagulation Cor status-full Dispo- observation for now. Subjective: pain at a 2 now. no NV Objective: Vital Signs Temp Pulse Resp BP Pulse Ox 36.8 C 76 16 99/61 L 95 04/22/18 20:00 04/22/18 20:00 04/22/18 20:00 04/22/18 20:00 04/22/18 20:00 04/21/18 04/22/18 04/23/18 05:59 05:59 05:59 Intake Total 1000 900 Balance 1000 900 - Physical Exam Constitutional: no apparent distress, appears nourished, not in pain Eyes: PERRL, anicteric sclera, EOMI Ears, Nose, Mouth, Throat: moist mucous membranes, hearing normal, ears appear normal, no oral mucosal ulcers Cardiovascular: regular rate and rhythym, no murmur, rub, or gallop Respiratory: no respiratory distress, no rales or rhonchi, clear to auscultation Gastrointestinal: normoactive bowel sounds, soft, non-tender abdomen, no palpable masses Genitourinary: no bladder fullness, no bladder tenderness, no renal bruits Skin: no rashes or abrasions, no fluctuance, no induration Musculoskeletal: full muscle strength, no muscle tenderness, normal joint ROM Neurologic: AAOx3, sensation intact bilaterally Psychiatric: interacting appropriately, not anxious, not encephalopathic, thought process linear Lymph, Heme, Immunologic: no cervical LAD, no supraclavicular LAD ICD10 Worksheet Patient Problems: Problems Problem Status Onset Autoimmune pancreatitis Acute Abdominal pain Acute Febrile illness Acute Lymphadenopathy Acute Pancreatitis Acute
[2018-04-23 04:44] LABS: PLATELET COUNT 172 10^3/uL (150-400)
[2018-04-23] MEDS ORDERED: GADOBUTROL 10 ML VIAL IVP ONE (09:22)
[2018-04-23] MEDS ORDERED: predniSONE 20 MG TAB PO SCH ×3 (12:48→14:00)
--- NOTE | 2018-04-23 12:57 | SOAPPROG ---
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 Mr. Larkin claims his pain is consistent with the previous pancreatitis pain he has experienced in the past. due to slightly increasing alkaline phosphatase imaging was ordered to evaluate for stricturing disease. MRI from today showing a sausage-like appearance to the pancreas indicating ongoing mild autoimmune pancreatitis. We will restart a steroid taper. Plan: 1.Trial of steroids to see if helps his pain. We will start the patient on 40 mg of prednisone daily for 2 weeks and then taper down 5 mg/day every week. 2.Patient being followed by Dr. Bang for the IgG4 disease and being prescribed CellCept thousand milligrams twice a day. 3.Bowel regimen while takes opioids 4. Discharge to home if pain is manageable after eating today Thank you for this consultation, Bel Lainez MD 04/23/18 12:54 Subjective: feel better, pain better, less nauseated Objective: Vital Signs Temp Pulse Resp BP Pulse Ox 36.7 C 71 16 98/56 L 94 04/23/18 08:47 04/23/18 08:47 04/23/18 08:47 04/23/18 08:47 04/23/18 08:47 Laboratory Results 04/23/18 03:12 04/23/18 03:12 04/22/18 04/23/18 04/24/18 05:59 05:59 05:59 Intake Total 1000 1000 Balance 1000 1000 Physical Exam - Physical Exam General Appearance: alert, no apparent distress Respiratory: chest non-tender, lungs clear Cardiac/Chest: regular rate, rhythm Abdomen: normal bowel sounds, non-tender, soft Skin: normal color Neuro/Psych: no motor/sensory deficits, alert, oriented x 3 ICD10 Worksheet Patient Problems: Problems Problem Status Onset Autoimmune pancreatitis Acute Abdominal pain Acute Febrile illness Acute Lymphadenopathy Acute Pancreatitis Acute
[2018-04-23] MEDS: INSULIN REGULAR HUMAN 100 UNIT/ML UNIT SC SCH ×2 (13:34→13:49)
[2018-04-23] MEDS: MYCOPHENOLATE MOFETIL 250 MG CAP PO SCH (13:35)
[2018-04-23 17:14] VITALS: BP 118/75
--- NOTE | 2018-04-23 17:37 | PDDCSUM ---
Discharge Summary Discharge Summary: Discharge diagnosis Autoimmune pancreatitis IgG for autoimmune sclerosing disease Hyperlipidemia Diabetes mellitus The patient is a 42-year-old male with known past medical history of IgG for autoimmune pancreatitis who presented to the emergency room with complaints of abdominal pain. A lipase was obtained which was approximately 350. He was admitted for further evaluation by a Gastroenterology. Gastroenterology was consulted who recommended MRI/MRCP of his abdomen for further evaluation of his abdominal pain. The MRI showed pancreatic duct stricture at the pancreatic neck with increasing dilatation of the pancreatic duct with mild irregularity in the body and tail. No definite pancreatic head or neck mass visualized. Gastroenterology felt that this suggested mild ongoing autoimmune pancreatitis. They recommended a trial of prednisone with a long taper. He was started on 40 mg of prednisone to complete 2 weeks at this dose followed by a decrease of 5 mg per week. The patient says that he followed with Dr. Bang. She recommended follow-up with Dr. Bang. I called Dr. Treviño office and they said that the patient had not seen Dr. Bang since 2014. I was able to get him scheduled for an apartment appointment 4 days after discharge for ongoing management of his autoimmune pancreatitis. I specifically ensured that the patient would be able to make the appointment at April 27 at 3:[address] Bang office. He said he would be able to make this appointment. I also told him that he would need to follow up with Dr. Walton at Dr. Bang office for refills of his prednisone as this would be a long ongoing taper. He was completely pain free on day 2 his hospitalization able to tolerate p.o. With no problems. He was discharged home to follow up with Dr. Walton in 4 days. Discharge disposition Home in good condition New medications Prednisone 40 to complete 14 days Follow-up
[2018-04-24] MEDS ORDERED: predniSONE 20 MG TAB PO SCH ×2 (09:00)
== END 2018-04-23 18:25 | disposition home or self-care (01) ==
LOC: F2W 06:03
PROVIDERS: ADMIT Family Medicine; ATTEND Internal Medicine
DX: K86.1 Other chronic pancreatitis (principal); D80.3 Selective deficiency of immunoglobulin G [IgG] subclasses; E78.5 Hyperlipidemia, unspecified; E11.9 Type 2 diabetes mellitus without complications
CPT/HCPCS: 82787-90; 96374; 97165-GO; A9585; G0378; J1815; J2270; J2405; J2930; J7512